=== PATIENT | female | born 1960 | race African-American/Black ===

== ENCOUNTER 2018-12-09 15:40 | Inpatient (IN) ==
[2018-12-09] MEDS ORDERED: MORPHINE IV ONE ×2 (16:03→18:40)
[2018-12-09] MEDS ORDERED: ZOFRAN IV ONE ×2 (16:04→18:40)
--- NOTE | 2018-12-09 16:39 | PROVIDER DOCUMENTATION ---
HPI-Abdominal Pain/GI Problem - General Chief Complaint: Abdominal Pain Stated Complaint: SIDE PAIN Time Seen by Provider: 12/09/18 16:01 Source: patient, family Allergies/Adverse Reactions: Patient Allergies Allergy/AdvReac Type Severity Reaction Status Date / Time No Known Allergies Allergy Verified 09/13/15 15:43 Home Medications: Home Medication List Medication Instructions Recorded Confirmed Last Taken Type Ipratropium/Albuterol INH 1 puff INH RTQ6H #1 inhaler 08/16/15 12/09/18 08/31/15 07:00 Rx [Combivent Respimat Inhaler] - History of Present Illness-ABD Nature of Presenting Problems: left side swollen and painful for the last 3 days and today is worse. worsening with cough. +decreased appetite, sob. small bm yesterday. denied nausea, vomiting, diarrhea, wt loss. has history of eye surgery in november for glaucoma. Review of Systems - Adult - REVIEW OF SYSTEMS - ADULT Constitutional: reports: no symptoms reported Eyes: reports: no symptoms reported Ears, Nose, Mouth & Throat: reports: no symptoms reported Cardiovascular: reports: no symptoms reported Respiratory: reports: no symptoms reported Gastrointestinal: reports: no symptoms reported Genitourinary: reports: no symptoms reported Musculoskeletal: reports: no symptoms reported Integumentary: reports: no symptoms reported Neurological: reports: no symptoms reported Psychiatric: reports: no symptoms reported Endocrine: reports: no symptoms reported Hematologic/Lymphatic: reports: no symptoms reported Allergic/Immunologic: reports: no symptoms reported All Other Systems: Reviewed and Negative Past History - Adult - PAST MEDICAL HISTORY-ADULT Review of Records: reports: Old Records Reviewed, Nursing Assessment Review, Medications Reviewed, Social history reviewed & non-contributory. Major Childhood Illnesses: reports: denies history Cardiovascular: reports: HTN Respiratory: reports: asthma, COPD Gastrointestinal: reports: denies history Obstetrical/Gynecological: reports: denies history Genitourinary: reports: denies history Musculoskeletal: reports: denies history Neurological: reports: denies history Endocrine/Immune: reports: denies history Other Conditions: reports: denies history - PRIOR SURGERIES/PROCEDURES Surgical/Procedure History: reports: none - PRIOR HOSPITALIZATIONS Prior Hospitalizations: reports: for similar symptoms - IMMUNIZATION STATUS Childhood Immunizations: See Nurse Assessment Flu Vaccine: See Nurse Assessment - FAMILY HISTORY Family History: reviewed, not pertinent - SOCIAL HISTORY Smoking: greater than 1 pack/day Provider spent 3-5 mins advising pt. on dangers of tobacco.: Discussed manners to quit use, and f/u contacts for add'l counseling. Substance Use: none/never Alcohol Use Frequency: occasionally (1 beer) Living Situation: family Physical Exam-General - CONSTITUTIONAL General Appearance: appears well, alert (and tearful) - EYES Eyes: PERRL/EOMI, pink conjunctivae - HEAD, EARS, NOSE, MOUTH & THROAT HENMT: normocephalic/atraumatic, moist mucous membranes, normal ENT inspection - RESPIRATORY Respiratory: chest non-tender, lungs clear, normal breath sounds - CARDIOVASCULAR Cardiovascular: normal peripheral pulses, tachycardia - GASTROINTESTINAL (ABDOMEN) Abdominal Exam: tenderness (left side around the 10, 11 ribs, and hard mass felt. umbilcus hernia) - MUSCULOSKELETAL Back Exam: normal inspection, no CVA tenderness, no vertebral tenderness Extremity: normal range of motion, non-tender, normal gait Peripheral Pulses: radial (R): 2+, radial (L): 2+, dorsalis-pedis (R): 2+, dorsalis-pedis (L): 2+ - SKIN Integumentary: normal color, normal turgor, warm/dry - NEUROLOGIC Neurologic: grossly normal, no motor/sensory deficits - PSYCHIATRIC Psych/Mental Status: oriented x 3, tearful Progress - PLAN OF CARE/RESULTS Progress/Plan/Lab Results: Vital Signs - 8 hr 12/09/18 15:46 12/09/18 15:47 Temperature 98.4 F Pulse Rate 105 H Respiratory Rate 21 Blood Pressure 137/101 O2 Sat by Pulse Oximetry 97 Orders Category Date Time Status ED: Urine Bedside ORDERED Care 12/09/18 15:49 Active NPO Diet 12/09/18 15:[address] ABDOMEN W/CONTRAST [CT] Stat Exams 12/09/18 15:51 Ordered CBC WITH DIFF [HEME] Stat Lab 12/09/18 15:49 Uncollected COMPREHENSIVE METABOLIC PANEL [CHEM] Stat Lab 12/09/18 15:49 Uncollected LIPASE [CHEM] Stat Lab 12/09/18 15:49 Uncollected URINALYSIS [URINALYSIS] Stat Lab 12/09/18 15:49 Uncollected Morphine Med 12/09/18 16:03 Discontinued 4 mg IV NOW ONE Ondansetron [Zofran] Med 12/09/18 16:04 Discontinued 4 mg IV NOW ONE Abd Pain/OB <20 weeks Stat Oth 12/09/18 15:48 Ordered [facility] [address] , [address], [place] [id number] Department of Imaging Patient: LAMAR JEAN ADM Date: 12/09/18 MR#: [id number] : 1960 ADM Status: REG ER Age/Sex: 58/F Room/Bed: Loc: ED Ordering Physician: Ashley Rodriguez MD Family Physician: Trung Cotton Jr, MD Reason for Procedure: NEOPLASM ___ Signed CT ABD/PELVIS W/IV CONT ONLY - 12/09/2018 INDICATION: NEOPLASM COMPARISON: 09/13/2015 FINDINGS: There is worsening, severe cardiomegaly. There is a small to moderate pericardial effusion. There are trace bilateral pleural effusions. There is some mild pulmonary fibrosis in the lung bases. There is a small amount of ascites mainly in the pelvis. There is moderate body wall edema. In the central intramuscular body wall at the left lateral abdomen, there is an oval hyperdense mass or collection. This measures 5.1 x 3.6 cm in AP and lateral dimensions. The liver, gallbladder, spleen, pancreas, adrenals, and kidneys are normal. Spleen size is normal. There is severe vascular disease of the abdominal aorta and its pelvic branches. No aneurysm. No bowel obstruction or inflammation. Urinary bladder is collapsed. Uterus and rectum are normal. Bones are intact. IMPRESSION: 1. Indeterminate oval slightly hyperdense mass or collection in the muscles of the lateral left abdominal wall. This may represent an intramuscular hematoma, versus soft tissue neoplasm. Please correlate clinically. This was not present on the prior CT. 2. Numerous other issues. This exam was performed using automated exposure control, adjustment of mA or kV according to patient size, and/or use of iterative reconstruction technique Electronically signed by Trung Collier 12/09/2018 7:32 PM 12/09/181931 Interpreting Physician: Trung Collier MD Dictated Date/Time: 12/09/181926 cc: Ashley Rodriguez MD; Trung Cotton Jr, MD Result Diagrams: 12/09/18 17:00 12/09/18 17:00 - REASSESSMENT Reassessment #1 Time Reassessed: 19:58 (MILD RELIEF, STIL IN ALOT OF PAIN.) Status: other (ADMIT PT FOR PAIN CONTROL) Reassessment Comment: ABD LUQ PAIN, UNCONTROL PAIN. QUESTIONABLE CANCER, U/S IN THE AM, BIOPSY. - CONSULTS/PCP/HOSPITALIST Notification #1 *Consult/PCP/Hospitalist*: dR. Tracey Time Discussed: 21:11 Consult Disposition: Admit Departure - Departure Date of Disposition Decision: 12/09/18 Time of Disposition Decision: 16:37 DIAGNOSIS: Tobacco use disorder, Abdominal mass, left upper quadrant, Inadequate pain control Disposition: ADMITTED INPATIENT 09 Certified Medical Emergency: Emergent Condition: Stable Additional Freetext Instructions: ED Follow Up Instructions: You have been treated by a care provider in the Emergency Department. These inst ructions are being provided to you so you can have an understanding of how to care for yourself upon discharge. Upon discharge from the Emergency Department, you are responsible for making arrangements for follow-up care by a physician of your choice. Take all prescribed medications as directed. Return to the Emergency Department immediately for any new or worsening symptoms. You may call the Physician Referral phone number at [phone] to obtain a list of Physicians who are taking new patients. Referrals and Follow-Ups: Trung Cotton Jr, MD [Primary Care Provider] - - Critical Care Note This patient required my direct & personal management of CC.: No Attestation - Physician/ CHUCK Attestation The physician spent face to face time with patient:: Yes Advanced Practice Provider documentation review:: Supervising physician onsite and consulted in the evaluation and care of this patient. The physician did have a face to face encounter with the patient.
[2018-12-09 17:41] LABS: URINE SOURCE CLEAN CATCH
[2018-12-09 17:47] LABS: BILIRUBIN URINE NEGATIVE (NEGATIVE); BLOOD URINE NEGATIVE (NEGATIVE); COLOR YELLOW; GLUCOSE URINE NEGATIVE (NEGATIVE); KETONE URINE TRACE mg/dL (NEGATIVE); LEUKOCYTES URINE LARGE (NEGATIVE); NITRITE URINE NEGATIVE (NEGATIVE); PH URINE 5.5; PROTEIN URINE TRACE mg/dL (NEGATIVE); SP GRAVITY URINE 1.027; TURBIDITY URINE CLEAR (CLEAR); UROBILINOGEN URINE NORMAL (NORMAL)
[2018-12-09 17:48] LABS: UR EPITHELIAL CELLS <10 /HPF (<10); URINE BACTERIA NEGATIVE /HPF; URINE RBC <10 /HPF (<10); URINE WBC <10 /HPF (<10)
[2018-12-09 18:02] LABS: BASO# 0.21 X1000 (0.0-0.2); EOS# 0.33 X1000 (0.0-0.7); EOS% 4.8 % (0.0-10.0); HEMATOCRIT 42.7 % (37.0-47.0); HEMOGLOBIN 14.1 g/dL (12.0-16.0); IMM GRAN# 0.02 X1000 (0.0-0.04); IMM GRAN% 0.3 % (0.0-0.5); LYMPH# 2.45 X1000 (1.2-3.4); LYMPH% 35.4 % (20.5-51.1); MCH 29.3 PG (27-31); MCV 88.6 FL (81-99); MONO# 0.69 X1000 (0.11-0.59); MPV 11.6 FL (7.4-10.4); NEUT# 3.22 X1000 (1.4-6.5); NEUT% 46.5 % (42.2-75.2); PLT 250 X1000 (130-400); RBC 4.82 XMIL (4.2-5.4); RDW 14.9 % (11.5-14.5); WBC 6.92 X1000 (4.8-10.8)
[2018-12-09 18:16] LABS: ALB/GLOB RATIO 0.7; ALBUMIN 3.6 g/dL (3.5-5.0); CREATININE 1.2 mg/dL (0.5-0.9); POTASSIUM 5.1 mmol/L (3.5-5.1); TOTAL BILIRUBIN 1.08 mg/dL (0.20-1.00); TOTAL PROTEIN 8.5 g/dL (6.3-8.3)
--- NOTE | 2018-12-09 19:34 | Diag Imaging Result Doc PS360 ---
CT ABD/PELVIS W/IV CONT ONLY - 12/09/2018 INDICATION: NEOPLASM COMPARISON: 09/13/2015 FINDINGS: There is worsening, severe cardiomegaly. There is a small to moderate pericardial effusion. There are trace bilateral pleural effusions. There is some mild pulmonary fibrosis in the lung bases. There is a small amount of ascites mainly in the pelvis. There is moderate body wall edema. In the central intramuscular body wall at the left lateral abdomen, there is an oval hyperdense mass or collection. This measures 5.1 x 3.6 cm in AP and lateral dimensions. The liver, gallbladder, spleen, pancreas, adrenals, and kidneys are normal. Spleen size is normal. There is severe vascular disease of the abdominal aorta and its pelvic branches. No aneurysm. No bowel obstruction or inflammation. Urinary bladder is collapsed. Uterus and rectum are normal. Bones are intact. IMPRESSION: 1. Indeterminate oval slightly hyperdense mass or collection in the muscles of the lateral left abdominal wall. This may represent an intramuscular hematoma, versus soft tissue neoplasm. Please correlate clinically. This was not present on the prior CT. 2. Numerous other issues. This exam was performed using automated exposure control, adjustment of mA or kV according to patient size, and/or use of iterative reconstruction technique Electronically signed by Trung Collier 12/09/2018 7:32 PM
[2018-12-09] MEDS ORDERED: TORADOL IV ONE (19:48)
--- NOTE | 2018-12-09 22:31 | HISTORY AND PHYSICAL ---
PRIMARY CARE PHYSICIAN: Dr. Cotton. CHIEF COMPLAINT: Abdominal pain for 3 days. HISTORY OF PRESENTING ILLNESS: 58-year-old female with a history of COPD had presented to emergency department with 3 days history of worsening abdominal pain on her left lateral side. She states that it was worsening and was getting more painful. She was evaluated in the emergency department and she had a CT scan that was done which did show possibility intermuscular hematoma versus soft tissue neoplasm. Due to these findings it was thought that we will place her for observation further evaluation management. Time my examination, patient had denied any headache, fever, chills, chest pain, shortness of breath, hemoptysis or any weight changes but complained of abdominal pain. PAST MEDICAL HISTORY: Includes COPD. PAST SURGICAL HISTORY: Left eye surgery. ALLERGIES: No known drug allergies. CURRENT MEDICATIONS: Include Combivent 1 puff inhalation q.6 hours. SOCIAL HISTORY: Fifteen pack year history of smoking. Admits to social alcohol use. Denies any illicit drug use. FAMILY HISTORY: No history of coronary disease. REVIEW OF SYSTEMS: Fourteen point review of systems is as in HPI. Other systems negative. PHYSICAL EXAMINATION: GENERAL: Cooperative, friendly female. She is resting more comfortably now. VITAL SIGNS: Temperature 98.4 degrees, pulse 105, respirations 21, blood pressure 137/101. HEENT: Atraumatic, normocephalic. Extraocular movements intact. PERRLA. NECK: Supple. CHEST: Clear to auscultation. CARDIOVASCULAR: Regular rate and rhythm. S1, S2. ABDOMEN: Soft. Diffuse tenderness. EXTREMITIES: No edema. NEURO: She is awake, alert, oriented x3. : No bladder distention. SKIN: Warm. LABORATORIES AND STUDIES: WBC 6.92, hemoglobin 14.1, hematocrit 42.7, platelets 250,000, sodium 134, potassium 5.1, chloride 101, CO2 16, BUN is 14, creatinine 1.2, glucose 96. UA shows large leukocytes. CT of the abdomen pelvis shows oval hyperdense mass or collection muscles of the left lateral abdominal wall which may represent intramuscular hematoma versus soft tissue neoplasm. ASSESSMENT: A 58-year-old female with a history of chronic obstructive pulmonary disease had presented to emergency department with 3 days history of worsening abdominal pain in the left lateral side. She was evaluated the emergency department. She had imaging done which did show possibility of intermuscular hematoma versus soft tissue neoplasm. Due to these findings it was thought that will place her for observation for further evaluation management. 1. Abdominal pain. 2. Abnormal CT showing intermuscular hematoma versus soft tissue neoplasm. 3. Chronic obstructive pulmonary disease. 4. Ongoing tobacco abuse. PLAN: 1. We will admit patient to medical floor with telemetry. 2. Will give patient adequate pain control. 3. We will check an abdominal ultrasound. 4. Continue with DuoNeb p.r.n. 5. Put patient DVT prophylaxis SCD. 6. I counseled patient on smoking cessation. cc: Antonio Rothman MD
[2018-12-10] MEDS: MORPHINE IV PRN ×6 (00:11→23:54)
[2018-12-10] MEDS ORDERED: DUONEB (A & A) INH PRN (00:17)
[2018-12-10] MEDS: NS 1,000 ML IV SCH ×3 (01:11→12:24)
[2018-12-10 05:30] LABS: BASO# 0.24 X1000 (0.0-0.2); BASO% 3.6 % (0.0-0.8); EOS# 0.07 X1000 (0.0-0.7); HEMATOCRIT 46.1 % (37.0-47.0); LYMPH# 2.14 X1000 (1.2-3.4); LYMPH% 32.1 % (20.5-51.1); MCH 29.7 PG (27-31); MCHC 32.5 g/dL (33-37); MCV 91.3 FL (81-99); MONO# 0.74 X1000 (0.11-0.59); MONO% 11.1 % (1.7-9.3); MPV 11.7 FL (7.4-10.4); NEUT# 3.48 X1000 (1.4-6.5); NEUT% 52.2 % (42.2-75.2); PLT 211 X1000 (130-400); RBC 5.05 XMIL (4.2-5.4); RDW 15.8 % (11.5-14.5); WBC 6.67 X1000 (4.8-10.8)
[2018-12-10] MEDS: ZOFRAN IV ONE ×2 (07:37→08:38)
--- NOTE | 2018-12-10 08:36 | Diag Imaging Result Doc PS360 ---
EXAM: US ABDOMEN-COMPLETE HISTORY: abdominal pain TECHNIQUE: Abdominal ultrasound COMPARISON: 09/14/2015 FINDINGS: Normal pancreas. Prominent atherosclerosis, but no aortic aneurysm. Normal inferior vena cava. There is fatty infiltration of the liver. Normal gallbladder. No stones. The common bile that measures 3 mm. Normal right kidney. No hydronephrosis. There is a small amount of ascites. Normal left kidney. No hydronephrosis. Normal spleen. IMPRESSION: 1.Small amount of ascites 2.Likely mild fatty infiltration of the liver 3.Prominent atherosclerosis Electronically signed by Nikhil King 12/10/2018 8:34 AM
--- NOTE | 2018-12-11 00:06 | GENERAL SURGERY CONSULTATION ---
DATE: 12/10/2018 REASON FOR CONSULTATION: Abdominal wall mass. HISTORY OF PRESENT ILLNESS: This is a 58-year-old female who began having left upper and lateral abdominal pain several days ago. It has been persistent and worsening in nature. It coincided with an episode of severe coughing over the weekend. No nausea or vomiting. No fever or chills. No weight loss. No diarrhea or constipation. It is worsened to direct pressure, lessened with rest. PAST MEDICAL HISTORY: COPD. PAST SURGICAL HISTORY: Left eye surgery. ALLERGIES: No known drug allergies. HOME MEDICATIONS: Combivent inhaler. ALLERGIES: No known drug allergies. SOCIAL HISTORY: She has a [id number] history of smoking. She does drink alcohol occasionally. No illicit drug use. FAMILY HISTORY: Reviewed and noncontributory. REVIEW OF SYSTEMS: Ten systems reviewed and negative except as noted above. PHYSICAL EXAMINATION: Vital Signs: Temperature 98.3 degrees, pulse is 116, respiratory rate 16, blood pressure 100/67, O2 saturation 98%. General: A somewhat sickly appearing female in no acute distress, who looks a little older than her stated age. HEENT: Normocephalic, atraumatic. Extraocular muscles intact. Pupils equal, round, reactive to light. Sclerae anicteric. Moist mucous membranes. Hearing grossly normal. No oral lesions. Neck: Supple. No thyromegaly. Cardiovascular: Regular rate and rhythm. Respiratory: Bilateral breath sounds. No work of breathing. Gastrointestinal: Soft, nondistended. No organomegaly. There is a tender, firm area in the left upper lateral abdominal wall measuring 3 to 5 cm in greatest dimension. It is somewhat boggy, however, in nature. There is no significant overlying erythema. Extremities: No clubbing, cyanosis, or edema. Skin: Warm and dry. No rash. Musculoskeletal: Moves all extremities equally and well. LABORATORY: Sodium 134, BUN 14, creatinine 1.2. Total bilirubin 1.1, AST 34, alkaline phosphatase 231, lipase 21. CBC reviewed and unremarkable. Urinalysis reviewed and unremarkable. IMAGING: CT of the abdomen and pelvis was done yesterday, showing an indeterminate hyperdense mass or fluid collection in the muscles of the lateral left abdominal wall. This could be an intramuscular hematoma or a soft tissue neoplasm. An abdominal ultrasound was performed which showed small amount of ascites and mild fatty infiltration of the liver and prominent atherosclerosis, but no abdominal wall mass was described. ASSESSMENT AND PLAN: A 58-year-old female with a left-sided abdominal wall mass of unclear etiology. I would favor intramuscular hematoma versus neoplasm. We will evaluate tomorrow again with ultrasound and do a needle biopsy, either aspiration or core needle biopsy, as the ultrasound results dictate. cc: Bartolo Chen MD
[2018-12-11] MEDS: MORPHINE IV PRN (08:35)
[2018-12-11] MEDS ORDERED: LR 1,000 ML IV ONE (08:40)
[2018-12-11] MEDS ORDERED: LR 1,000 ML IV SCH ×2 (09:00→09:02)
[2018-12-11 09:09] LABS: BASO# 0.11 X1000 (0.0-0.2); BASO% 1.3 % (0.0-0.8); EOS# 0.01 X1000 (0.0-0.7); EOS% 0.1 % (0.0-10.0); HEMATOCRIT 44.8 % (37.0-47.0); HEMOGLOBIN 14.1 g/dL (12.0-16.0); IMM GRAN# 0.04 X1000 (0.0-0.04); IMM GRAN% 0.5 % (0.0-0.5); LYMPH# 1.38 X1000 (1.2-3.4); LYMPH% 15.9 % (20.5-51.1); MCH 29.5 PG (27-31); MCHC 31.5 g/dL (33-37); MCV 93.7 FL (81-99); MONO# 0.97 X1000 (0.11-0.59); MONO% 11.2 % (1.7-9.3); MPV 11.3 FL (7.4-10.4); NEUT# 6.16 X1000 (1.4-6.5); PLT 184 X1000 (130-400); RBC 4.78 XMIL (4.2-5.4); WBC 8.67 X1000 (4.8-10.8)
--- NOTE | 2018-12-11 09:28 | EKG Report ---
Test Performed on : 12/11/2018 09:17:35 AM Test Reason : Evaluate for cardiac ischmia. AMS and Hypotension Blood Pressure : / mmHG Vent. Rate : 110 BPM Atrial Rate : 110 BPM P-R Int : 162 ms QRS Dur : 102 ms QT Int : 356 ms P-R-T Axes : 065 118 -13 degrees QTc Int : 481 ms Sinus tachycardia. Right ventricular hypertrophy Anteroseptal infarct , age undetermined T wave abnormality, consider inferior ischemia Abnormal ECG When compared with ECG of 13-SEP-2015 18:48, Significant changes have occurred Confirmed by Adan RIVER, Ed Arce ([id number]) on 12/11/2018 6:39:26 PM
[2018-12-11 09:45] LABS: ALB/GLOB RATIO 0.7; ALBUMIN 3.4 g/dL (3.5-5.0); CALCIUM 8.4 mg/dL (8.8-10.2); CREATININE 3.1 mg/dL (0.5-0.9); POTASSIUM 5.8 mmol/L (3.5-5.1); TOTAL BILIRUBIN 0.82 mg/dL (0.20-1.00)
[2018-12-11 09:54] LABS: ALLEN TEST YES; BE -14.4 mmoll (-3.0-3.0); BLOOD TYPE ARTERIAL; HCO3-(ACT) 13.5 mmoll (20.0-26.0); METHB 0.9 % (0.0-1.5); O2(CT) 15.8 mL/dL (15.0-23.0); PCO2(98.6) 38 mmHg (35-45); PO2(98.6) 63 mmHg (60-100); SAMPLE BLOOD; SAO2 90.5 % (95.0-100.0); THB 12.8 g/dL (11.5-17.4)
[2018-12-11 09:58] LABS: MODALITY NRB; O2HB 87.7 % (95.0-99.0); pH(98.6) 7.16 (7.35-7.45)
[2018-12-11 09:58] LABS: BANDS 6 % (0-1); BASO 1 % (0-1); LYMPHS 17 % (21-51); MONO 13 % (1-9); SEGS 62 % (42-75)
[2018-12-11 09:59] LABS: ANISOCYTOSIS 1+; LARGE PLATELETS 2+
[2018-12-11] MEDS ORDERED: ALBUTEROL 0.5% INH CONC FOR HYPERKALEMIA INH ONE (09:59)
[2018-12-11] MEDS ORDERED: HALDOL IV PRN (10:10)
[2018-12-11] MEDS ORDERED: SODIUM BICARBONATE 8.4% 150 MEQ in D5W 1,000 ML IV SCH ×2 (11:00→21:04)
--- NOTE | 2018-12-11 11:08 | Diag Imaging Result Doc PS360 ---
CHEST-PORTABLE - 12/11/2018 INDICATION: dyspnea COMPARISON: 09/13/2015 FINDINGS: There is significant cardiomegaly which has worsened since prior. Pulmonary vascularity is congested. There are some nonspecific infiltrate or atelectasis in the lower lobes bilaterally. No large pleural effusion. IMPRESSION: Cardiomegaly and pulmonary vascular congestion. Bilateral lower lobe nonspecific atelectasis or infiltrate. Electronically signed by Trung Collier 12/11/2018 11:05 AM
--- NOTE | 2018-12-11 11:11 | PROGRESS NOTE ---
DATE: 12/11/2018 INTERVAL HISTORY: I was informed by the nursing team that the patient was a little confused, and they had had a hard time in getting proper oxygen saturation on her. I immediately evaluated the patient. She does appear in mild distress and is fidgety. She is denying any chest pain or shortness of breath, though she is complaining of abdominal pain. Her pulse is weak, and so I have ordered intravenous fluid resuscitation. I have also ordered CBC, CMP, and ABG on her. I re-evaluated the patient again when she was about to go for ultrasound-guided biopsy of her mass on the left flank region. However, at the moment, she is still very encephalopathic so I discussed with the surgical team at bedside about holding off on the procedure. SUBJECTIVE: She denies any chest pain or shortness of breath. She is only complaining of abdominal pain. VITALS: Temperature of 97.9 degrees, pulse 109, respiratory rate 16, blood pressure 92/63. She is saturating 96% on 100% non-rebreather. PHYSICAL EXAMINATION: General: Appears in mild distress. Heart: Tachycardic. S1, S2 normal. No murmur, rub, or gallop. Lungs: Air entry bilaterally equal. No wheeze, rhonchi, or crackles. Abdomen: Firm. She does appear to have protein energy malnutrition, and she has low BMI. It is generalized tender especially in periumbilical left lower quadrant region. Hypoactive bowel sounds. She has significant jugular venous distention. No lower extremity edema. Neurologic: She is alert, however, she appears confused. She is able to tell me her name. She is not entirely oriented with situation. She is only complaining of abdominal pain. I called the patient's son to get more history, and have left a voice message. LABORATORY: The labs have come back. Her hemoglobin and hematocrit is stable. Her platelets are also stable. She does have significant metabolic acidosis. She has profound elevated anion gap metabolic acidosis, hyponatremia, hyperkalemia, acute kidney injury, and hypoglycemia. She also had elevated lipase level. On reviewing ABG and BMP, it does appear that her compensated pCO2 should be between 24 to 28, but she also has hypercarbia. MICROBIOLOGY: No data. IMAGING: Chest x-ray has not been performed. ASSESSMENT AND PLAN: 1. Acute hypoxic respiratory failure, likely in the setting of baseline COPD and multiple other metabolic derangements on chronic obstructive pulmonary disease baseline. I will start the patient on BiPAP if she tolerates. Otherwise, we will continue her on a nonrebreather mask to maintain saturation more than 92%. Follow up CXR. I will follow up with ABG tomorrow. 2. Profound acidosis in the setting of mixed metabolic and respiratory acidosis. Considering her hypoglycemia and low bicarbonate and elevated anion gap, I will start her on intravenous dextrose with bicarbonate. We will follow up with repeat BMP in the afternoon time. I will also get ultrasound retroperitoneal to rule out any post obstructive acute renal failure. 3. Acute kidney injury with hyperkalemia and hyponatremia. The patient did get CT scan of the abdomen and pelvis with IV contrast 48 hours prior, and it is possible that it might have caused contrast induced nephropathy. I will start patient on intravenous fluids and follow up with BMP. I will give her bicarb, lactulose and albuterol, US kidneys and I will also consider consult Nephrology. 4. Left lateral abdominal wall mass or collection. Surgical Team on board. Ultrasound-guided biopsy is planned. However, considering her acute illness, it has been postponed. 5. Acute encephalopathy likely in the setting of multiple metabolic derangement. She is moving all of her extremities spontaneously. My suspicion for stroke is very less. I will also introduce Echols catheter. 6. Cardiomegaly with elevated JVD: Follow up ECHO to rule out pericardial effusion, right heart failure. 6. Disposition. I will transfer patient to [facility] for closer monitoring. I called the patient's son who is a surrogate decision maker to discuss with him about her clinical condition. However, he did not sweet pickle maker, and I left a voice message. Plan of care discussed with the nursing team. cc: Brandyn Campos MD [facility]
[2018-12-11] MEDS ORDERED: EPINEPHRINE SYRINGE IV ONE (12:00)
[2018-12-11] MEDS ORDERED: SODIUM BICARBONATE 8.4% IV ONE (12:00)
[2018-12-11] MEDS ORDERED: CALCIUM CHLORIDE SYRINGE IV ONE (12:00)
[2018-12-11] MEDS ORDERED: QUELICIN ONE (12:22)
[2018-12-11] MEDS ORDERED: AMIDATE ONE (12:22)
[2018-12-11] MEDS ORDERED: NORCURON ONE (12:25)
[2018-12-11] MEDS: LEVOPHED 8 MG in D5 1/2 NS 250 ML IV SCH (12:35)
[2018-12-11] MEDS ORDERED: LEVOPHED 8 MG in D5 1/2 NS 250 ML IV SCH (13:00)
[2018-12-11 13:09] LABS: ALLEN TEST YES; BE -16.3 mmoll (-3.0-3.0); BLOOD TYPE ARTERIAL; HCO3-(ACT) 12.2 mmoll (20.0-26.0); METHB 1.2 % (0.0-1.5); O2(CT) 16.1 mL/dL (15.0-23.0); O2HB 96.5 % (95.0-99.0); PCO2(98.6) 48 mmHg (35-45); PO2(98.6) 131 mmHg (60-100); SAMPLE BLOOD; SAO2 99.5 % (95.0-100.0); SRATE 16 BPM; THB 11.7 g/dL (11.5-17.4); TVOL 500 mL
[2018-12-11 13:14] LABS: MODALITY VENTILATOR; pH(98.6) 7.06 (7.35-7.45)
[2018-12-11] MEDS: ZYVOX 600 MG/D5W 600 MG/300 ML IVPB IV SCH (13:14)
[2018-12-11] MEDS ORDERED: ZOSYN 3.375 GM in NS 50 ML IV SCH (13:15)
[2018-12-11] MEDS ORDERED: AMIDATE IV ONE (13:19)
[2018-12-11] MEDS ORDERED: NORCURON IV ONE (13:21)
--- NOTE | 2018-12-11 13:44 | PROGRESS NOTE ---
DATE: 12/11/2018 ADDENDUM: I was at the bedside evaluating the patient as she was very agitated. She was not tolerating BiPAP well, and she was given haloperidol. However, despite that, she was not tolerating the BiPAP well, and she was even taking the non-rebreather mask out. I directed the nurse to get the restraints so that we can keep the non-rebreather mask on. During that moment when she was getting her restraints, she had started becoming less responsive. She did have cold extremities. I was not able to feel her pulse. I checked the carotid as well as femoral pulse, and she passed out. She was not responding so chest compression was initiated, and a code blue was called. The entire code blue lasted for about 5 minutes. She was given an ampule of calcium gluconate, and ampules of epinephrine following which we were able to get the pulse back. The bicarb drip was ordered in the morning time, however, she was yes to start receiving the bicarb drip. During code, we had started giving her intravenous fluid boluses. After we got the return of spontaneous circulation, we kept the patient on intravenous fluids and started her on bicarbonate drip. We gave her another ampule of epinephrine and started on norepinephrine drip. We also gave her an ampule of bicarbonate. Repeat blood pressure was 120/70. She was intubated by emergency room physician during the code, and she was getting bag- mask ventilation. We were able to transfer the patient to ICU. Right outside the patient's room, patient's daughter and son were present. I went and informed them about the patient's clinical condition. I informed them that I started taking care of her today and she was confused in the morning time when I evaluated her, and was not oriented with situation so I had ordered stat labs, which had suggested hyperkalemia and acute kidney injury with hyponatremia. I was suspecting metabolic derangement contributing to her acute encephalopathy. She was also very hypoxic, and we had started her on nonrebreather mask. I explained to them that her condition is critical. We will have to transfer to ICU for mechanical ventilation. I allowed them sufficient time to ask all the questions that they had, and I answered all of them satisfactorily. Meanwhile, I discussed the case with conservation planner at bedside as well. I am going to start her on intravenous fluids. Would introduce nasogastric tube. We will get chest x-ray and abdominal x-ray to rule out small-bowel obstruction as well as to confirm the position of the nasogastric or orogastric tube as well as endotracheal tube. I will also start her on broad-spectrum antibiotics, send blood cultures, and will follow up with serial troponin, echocardiogram and lactate. Plan of care discussed with nursing team at bedside. TIME SPENT: More than 30 minutes of critical care time was spent in taking care of this patient. cc: Brandyn Campos MD ADDENDUM: I again evaluated the patient in the afternoon time. Her acidosis is worse and I have continued her on bicarbonate drip. I have discussed her case with the conservation planner. I will follow up with DIMITRI silver. I again updated 3 of her family members about her care and answered all of their questions. JESSY
--- NOTE | 2018-12-11 14:37 | GENERAL SURGERY PROGRESS NOTE ---
DATE: 12/11/2018 SUBJECTIVE: The patient is short of breath this morning and complains of pain in her left abdomen when she coughs. OBJECTIVE: Vital Signs: Temperature 97.9 degrees, pulse 109, blood pressure 92/63, and O2 saturation 77%. General: She is awake, appears to be in some mild distress. She is oriented x3. CV: Tachycardic and regular. Respiratory: Bilateral breath sounds with tachypnea. Gastrointestinal: Soft, nondistended. She is mildly tender in the left lateral abdomen and left upper quadrant where there is a firm abdominal wall mass. No overlying erythema or warmth. LABORATORY: White blood cell count 8.7, hemoglobin 14, hematocrit 44, platelet count 184. Sodium 130, potassium 5.8, chloride 99, CO2 12. BUN 33, creatinine 3.1, AST 52, ALT 11, alkaline phosphatase 195, lipase 455. A pH 7.16, pCO2 38, PaO2 63, bicarbonate 13, base deficit -14, lactate 2.3 on 100% non-rebreather. ASSESSMENT AND PLAN: A 58-year-old female, who was admitted with abdominal pain and imaging showing a left abdominal wall mass of unclear etiology. She now has respiratory failure, hypotension, acute kidney injury and metabolic acidosis of unclear etiology. The hospitalist has ordered a Echols catheter and transferred to the intensive care unit, as well as a chest x-ray, renal ultrasound and echocardiogram which I agree with. She also received a bolus of fluids this morning. She may have some early pancreatitis. In regards to the abdominal wall biopsy, we will defer that to a later time when she is more stable. cc: Bartolo Chen MD
--- NOTE | 2018-12-11 14:43 | Diag Imaging Result Doc PS360 ---
EXAM: CHEST/ABD TUBE PLACEMENT 12/11/2018 HISTORY: ET tube placement, Ng tube placement TECHNIQUE: Chest and abdomen for NG tube placement COMMENT: There is an NG tube with its tip in the stomach. There continues to be cardiomegaly and patchy bilateral pulmonary opacities. IMPRESSION: NG tube in the stomach. Electronically signed by Saji Triplett 12/11/2018 2:41 PM
--- NOTE | 2018-12-11 14:44 | Diag Imaging Result Doc PS360 ---
EXAM: CHEST-PORTABLE 12/11/2018 HISTORY: dyspnea. Confirm endotracheal tube placement TECHNIQUE: AP portable at 1428 COMMENT: There is an endotracheal tube with its tip approximately 3 cm above the norma. There is an NG tube with its tip below the diaphragm. There are patchy alveolar opacities bilaterally which have worsened since 12/11/2018 at 1054. IMPRESSION: Worsening pulmonary edema. Electronically signed by Saji Triplett 12/11/2018 2:42 PM
[2018-12-11] MEDS: DUONEB (A & A) INH SCH ×4 (15:29→23:25)
[2018-12-11] MEDS: LACTULOSE PO SCH ×2 (16:01→20:15)
[2018-12-11 16:06] LABS: URINE SOURCE CATH
[2018-12-11 16:11] LABS: BILIRUBIN URINE SMALL (NEGATIVE); BLOOD URINE MODERATE (NEGATIVE); COLOR YELLOW; GLUCOSE URINE NEGATIVE (NEGATIVE); KETONE URINE TRACE mg/dL (NEGATIVE); LEUKOCYTES URINE NEGATIVE (NEGATIVE); NITRITE URINE NEGATIVE (NEGATIVE); PH URINE 5.5; PROTEIN URINE 100 mg/dL (NEGATIVE); SP GRAVITY URINE 1.033; TURBIDITY URINE HAZY (CLEAR); UR EPITHELIAL CELLS >10 /HPF (<10); URINE BACTERIA NEGATIVE /HPF; URINE RBC <10 /HPF (<10); UROBILINOGEN URINE NORMAL (NORMAL)
[2018-12-11 16:22] LABS: CALCIUM 8.8 mg/dL (8.8-10.2); CREATININE 3.4 mg/dL (0.5-0.9); POTASSIUM 5.4 mmol/L (3.5-5.1)
[2018-12-11 16:22] LABS: UR CREAT RANDOM 85.3 mg/dL (11-20); UR PROT RANDOM 168.1 mg/dL
[2018-12-11] MEDS: ATIVAN IV PRN (18:00)
--- NOTE | 2018-12-11 19:30 | ECHO REPORT ---
ORDER DATE: 12/11/2018 INDICATION: Patient with cardiomegaly, CHF suspected. M-MODE MEASUREMENTS: Left ventricle end diastole: 1.1. Left ventricle end systole: 2.2. Posterior wall: 1.1. Interventricular septum: 1.1. Left atrium: 1.9. Aortic root: 3.0. SUMMARY OF 2-DIMENSIONAL IMAGIN. Left ventricular function appears to be normal. 2. There is flattening of the interventricular septum due to significant enlargement of the right ventricle. The right ventricle is markedly enlarged and shows global hypokinesis. 3. The right atrium is massively dilated. 4. The left atrium appears to be normal. 5. The aortic valve looks grossly normal. 6. The mitral valve also appears to be grossly normal. 7. This study is very difficult. There is moderate to severe tricuspid regurgitation. Pulmonary pressure is probably significantly elevated. This study is probably underestimating the pulmonary pressure. In this case, it is on the order of 68 mmHg. 8. There is a mild degree of pulmonic regurgitation. 9. There is a moderate-sized pericardial effusion without evidence of tamponade. SUMMARY: This study shows: 1. Markedly enlarged right ventricle and massively dilated right atrium, probably with severe pulmonary hypertension. Global function of the right ventricle is moderately impaired. Suspected significant pulmonary hypertension. 2. The left ventricle and left atrium appear to be small, and left ventricular systolic function is normal with flattening of the interventricular septum. 3. The aortic and mitral valves appear to be unremarkable. 4. Diastolic function could not be evaluated and is probably irrelevant in this case. 5. There is a moderate-sized pericardial effusion. 6. The study may be consistent with chronic fluid overload versus severe pulmonary vascular disease. Clinical correlation is strongly recommended. cc: MD Brandyn Shaver MD
[2018-12-11] MEDS: HEPARIN SUBQ SCH (20:15)
--- NOTE | 2018-12-11 21:13 | NEPHROLOGY CONSULTATION ---
DATE: 12/11/2018 REASON FOR ADMISSION: Abdominal pain for 3 days. REASON FOR CONSULT: Acute kidney injury with oliguria. CONSULTING PHYSICIAN: Dr. Campos. HISTORY OF PRESENT ILLNESS: Ms. Leung is a 58-year-old female who has a known history of COPD. The patient is currently intubated. She had her son and her daughter at the bedside. The son indicated that he had called her 2 days ago, indicating that she had been coughing severely, had severe abdominal pain to her lateral side on the left. She had stated that the pain was getting worse and she was going to go to the emergency room for evaluation. Upon arrival, she was sent for a CT scan which showed a possible intramuscular hematoma versus a tissue neoplasm. Dr. Chen had been consulted, had planned for an ultrasound-guided biopsy of abdominal wall mass secondary to patient's increased work of breathing, hypotension, and lethargy. The patient was transferred to ICU and this was deferred at this time. The patient has been intubated. Dr. Chavis has been consulted. Unable to obtain any further review of systems per patient. Son and daughter are unaware of any other medical history. PAST SURGICAL HISTORY: They state she has had left eye surgery. SOCIAL HISTORY: She is a 15 pack per year history of smoking. No alcohol or illicit drug use. They state she lives alone. FAMILY HISTORY: No history of coronary artery disease or kidney disease. No history of hypertension. ALLERGIES: Listed as no known drug allergies. HOME MEDICATIONS: Combivent inhaler. PRIMARY CARE PHYSICIAN: Dr. Cotton. It is noted that the patient's baseline creatinine is 0.8 to 1 prior to her admission. BUN of 33 with a creatinine of 3.1, and she is hyperkalemic with a potassium of 5.8, hyponatremic, sodium of 130. The patient had a Echols catheter inserted once arrived in the ICU. She has only had 35 mL documented out. REVIEW OF SYSTEMS: Unable to obtain. Most information obtained per family and per chart. MOST RECENT VITAL SIGNS: Temperature 97.9, blood pressure 92/63, heart rate 109, respirations 16. She is on 100% FiO2. Dr. Chavis has seen her ABGs. She is on 500 tidal volume with 12 of PEEP. Feels that there is nothing more to do this evening. ABGs are ordered for the morning. LABORATORY DATA: Sodium 130, potassium 5.8, chloride 99, CO2 12, BUN 33, creatinine 3.1, glucose 62, anion gap of 19, calcium 8.4, albumin 3.4. White count 8.67, hemoglobin 14.1, hematocrit 44.8, with a platelet count of 184,000. ABGs: PH 7.06, pCO2 48, pO2 131, bicarb 12.2. Her plasma lactate is 5.7 on 100% FiO2. Chest x-ray this a.m. shows bilateral lower lobe infiltrates versus atelectasis. CT of the abdomen and pelvis, performed on 12/09/2018, shows negative hydronephrosis or renal mass. The patient is currently on a Levophed drip. This is being titrated. She is on a sodium bicarbonate drip, D5W, with 3 amps of sodium bicarbonate infusing at 75 mL an hour. She is currently on antibiotics of Zyvox and Zosyn. These have been changed to renal dosing. PHYSICAL EXAMINATION: General: This is a 58-year-old female. She is not sedated. She is ventilator dependent in ICU. She does not open her eyes to verbal or tactile stimuli, even with the family talking to her. HEENT: Normocephalic, atraumatic. Conjunctiva is pale. PERRL. Mucous membranes are dry. Oral ET tube is in place. Neck: Supple. Trachea midline. No evidence of JVD. Cardiovascular: She is tachycardic. Regular rate and rhythm. No murmur or gallop appreciated. Lungs: She has coarse breath sounds bilateral. No wheezes or crackles present. Ventilatory support. Abdomen: Soft. No response to light palpation. Noted diffuse tenderness earlier in the a.m. Genitourinary: Echols catheter is in place. There is no urine output. Integumentary: Skin is warm and dry. She does have some light scratches noted to her lower extremities and upper extremities. No drainage. No rashes or lesions except for mentioned. Neurological: Unresponsive. Ventilatory support as mentioned above. ASSESSMENT AND PLAN: 1. Acute kidney injury. Multifactorial ATN. She has an elevated BUN and creatinine. We are awaiting urine electrolytes if they can collect enough urine to send down. Etiology is unclear. Her blood pressure has responded nicely to Levophed. No acute indications for hemodialysis at this time. 2. Metabolic acidosis with respiratory acidosis, elevated anion gap of 19. The patient is currently on a sodium bicarbonate drip. 3. Electrolytes. Patient is hyperkalemic, potassium of 5.8. Likely related to reabsorbing hematoma. We will check an acetone level and treat her potassium with insulin and D50 and albuterol inhaler. 4. Anemia. This is actually in target. 5. Abdominal wall mass versus abdominal hematoma. This is being followed by the primary care and Dr. Chen. 6. Respiratory failure. The patient is known chronic obstructive pulmonary disease, now followed by Dr. Chavis. Patient is now intubated. I would like to thank you for allowing us to follow with this patient. Dictated by CHINO Rico for Adalberto Garibay MD Face to face encounter, data reviewed, discussed with Kanika Yoo on 12/11/18. I agree with the above assessment and plan of care. cc: CHINO Rico MD [facility]
[2018-12-11] MEDS: ZOSYN 2.25 GM in NS 50 ML IV SCH (21:23)
--- NOTE | 2018-12-11 22:35 | OPERATIVE NOTE ---
PROCEDURE DATE: 12/11/2018 PREOPERATIVE DIAGNOSES: 1. Poor peripheral venous access. 2. Multiorgan failure. 3. Acute kidney injury. POSTOPERATIVE DIAGNOSES: 1. Poor peripheral venous access. 2. Multiorgan failure. 3. Acute kidney injury. PROCEDURE: Insertion of central venous Trialysis catheter. SURGEON: Bartolo Chen MD. ESTIMATED BLOOD LOSS: Scant. COMPLICATIONS: None apparent. TECHNIQUE: The patient was kept supine in her ICU bed. The right groin was prepped and draped in usual sterile fashion. The femoral artery was palpated and medial to the artery the femoral vein was accessed with a needle and syringe. Dark nonpulsatile blood was obtained. The wire passed through the needle easily. The needle was removed. The track was dilated. A Trialysis catheter was passed over the wire via the Seldinger technique. The wire was removed. Each port selene back blood easily was flushed with saline. Sterile caps were applied. The port was anchored to the skin with nylon suture. A sterile dressing was applied. There were no apparent complications. cc: Bartolo Chen MD
[2018-12-11 22:44] LABS: ALLEN TEST YES; BLOOD TYPE ARTERIAL; HCO3-(ACT) 20.2 mmoll (20.0-26.0); METHB 0.8 % (0.0-1.5); MODALITY VENTILATOR; O2(CT) 16.8 mL/dL (15.0-23.0); PCO2(98.6) 47 mmHg (35-45); PO2(98.6) 88 mmHg (60-100); SAMPLE BLOOD; SAO2 99.6 % (95.0-100.0); SRATE 16 BPM; THB 12.4 g/dL (11.5-17.4); TVOL 500 mL; pH(98.6) 7.26 (7.35-7.45)
[2018-12-11 23:14] LABS: CALCIUM 7.8 mg/dL (8.8-10.2); CREATININE 3.3 mg/dL (0.5-0.9); POTASSIUM 4.9 mmol/L (3.5-5.1)
[2018-12-12] MEDS: ZYVOX 600 MG/D5W 600 MG/300 ML IVPB IV SCH ×2 (01:23→13:27)
[2018-12-12] MEDS: LEVOPHED 8 MG in D5 1/2 NS 250 ML IV SCH ×3 (02:48→21:12)
[2018-12-12] MEDS: DUONEB (A & A) INH SCH ×6 (03:20→23:16)
--- NOTE | 2018-12-12 05:21 | CONSULTATION ---
DATE OF CONSULTATION: 12/11/2018 REQUESTING PROVIDER: Dr. Brandyn Campos. REASON FOR CONSULTATION: Ventilator management. HISTORY OF PRESENT ILLNESS: This is a 58-year-old female with a medical history of COPD with ongoing tobacco abuse and hypertension. She presented to the ER on 12/09/2018 with worsening abdominal pain and abdominal distention for [address] abdomen and pelvis with contrast in the ER revealed indeterminate oval, slightly hypodense mass or collection in the muscles of the lateral left abdominal wall. This may represent an intramuscular hematoma versus soft tissue neoplasm. There was worsening severe cardiomegaly or small to moderate pericardial effusion, chest bilateral pleural effusions, some mild pulmonary fibrosis in the lung bases. A small amount of ascites, mainly in the pelvis, and moderate body wall edema. Dr. Chen was consulted on 12/10/2018 and was planning on ultrasound and a needle biopsy this morning. Unfortunately, this morning patient's respiratory status declined significantly. She was originally on nasal cannula at 2 L. Her oxygen saturation dropped to 70s to 80s. She was put on a non- rebreather and oxygen saturation stayed in the lower 90s. ABG showed severe acidemia with pH 7.16 and HCO3 of 13.5. BiPAP was attempted later but patient could not tolerate it. She became very restless and agitated. She was put back on a non-rebreather, but she kept trying to pull the mask off, so the restraint was order. As the nurse put the restraints on her, she passed out. Code blue initiated and lasted for about 5 minutes. She was given an ampule of calcium gluconate and ampules of epinephrine before regaining pulses. She was intubated during the code and paralyzed with 10 mg vecuronium. She was transferred to the ICU at 1245. I saw the patient at around 1330, she was still unresponsive. She was on Levophed drip and bicarb drip. There was no family at the bedside. All information obtained from Dr. Campos and E-chart. PAST MEDICAL/SURGICAL HISTORY: 1. COPD. 2. Ongoing tobacco abuse. 3. Hypertension. 4. Left eye surgery. SOCIAL HISTORY: The patient smokes a pack per day for over 40 years. She has social alcohol use. She has no illicit drug use. FAMILY HISTORY: Unknown. ALLERGIES: No known drug allergies. REVIEW OF SYSTEMS: Unable to be obtained. PHYSICAL EXAMINATION: Vital Signs: Temperature 97 degrees, blood pressure 110/89, pulse 125, respiratory rate 21, oxygen saturation 86% on mechanical ventilator with spontaneous rate 16, FiO2 100%, tidal volume 500, and PEEP 12. General: Malnourished, intubated but not sedated. HEENT: Atraumatic. Trachea midline. Mucosa pink and dry. Respiratory: Mechanical ventilated. Auscultation reveals rhonchi bilaterally. Cardiovascular: Regular rate and rhythm. Gastrointestinal: Bowel sounds hyperactive in all 4 quadrants. Soft, nondistended. Extremities: No pedal edema. No cyanosis. No clubbing. Neurologic: Intubated and paralyzed. LAB DATA: White blood cell 8.67, hemoglobin 14.1, hematocrit 44.8, platelet 184,000. Sodium 140, potassium 5.8, chloride 99, carbon dioxide 12, BUN 33, creatinine 3.1. Glucose 62. ABG, pH 7.46, pCO2 is 48, PO2 is 131, HCO3 is 12.2, base excess -16.3, oxyhemoglobin 96.5, and lactate 5.70. IMAGING DATA: Chest x-ray showed worsening pulmonary edema. ASSESSMENT: This is a 58-year-old female with a medical history of chronic obstructive pulmonary disease with ongoing tobacco abuse and hypertension. She has been admitted to the medical floor since 12/09/2018 with intramuscular hematoma versus soft tissue neoplasm, and abdominal pain. She was Coded today at noon for about 5 minutes with intubation and paralyzation, and she was transferred to the ICU after the Code. 1. Acute hypoxemic respiratory failure. 2. Chronic obstructive pulmonary disease with ongoing tobacco abuse. 3. Shock. 4. Profound acidemia with mixed metabolic and respiratory acidosis. 5. Acute kidney injury with hypokalemia and hyponatremia. 6. Left lateral abdominal wall mass representing an intramuscular hematoma versus soft tissue neoplasm. 7. Acute encephalopathy. 8. Post cardiopulmonary resuscitation. PLAN: 1. Continue AC mechanical ventilator, and we will start weaning trials when appropriate. 2. Continue pressor, fluid resuscitation, antibiotic, and bronchodilators. 3. Follow up with chest x-ray, ABG, CBC, CMP, sputum culture, urine culture, and blood culture. 4. Dr. Chen and Dr. Garibay on board. 5. Continue GI and DVT prophylaxis. 6. Further recommendations pending hospital course. Thank you for the courtesy of this consult. Dictated by CHINO Adkins for Rashmi Chavis MD cc: CHINO Adkins MD [facility]
[2018-12-12 05:29] LABS: ALLEN TEST NO; BE -4.1 mmoll (-3.0-3.0); BLOOD TYPE ARTERIAL; HCO3-(ACT) 21.7 mmoll (20.0-26.0); METHB 1.5 % (0.0-1.5); MODALITY VENTILATOR; O2(CT) 17.1 mL/dL (15.0-23.0); O2HB 95.8 % (95.0-99.0); PCO2(98.6) 41 mmHg (35-45); PO2(98.6) 116 mmHg (60-100); SAMPLE BLOOD; SAO2 98.9 % (95.0-100.0); SRATE 16 BPM; THB 12.6 g/dL (11.5-17.4); TVOL 500 mL; pH(98.6) 7.33 (7.35-7.45)
[2018-12-12] MEDS: PRILOSEC NG SCH (06:13)
[2018-12-12] MEDS: HEPARIN SUBQ SCH ×4 (06:13→20:53)
[2018-12-12] MEDS: ATIVAN IV PRN ×4 (06:13→23:03)
[2018-12-12] MEDS: ZOSYN 2.25 GM in NS 50 ML IV SCH ×4 (06:13→20:53)
[2018-12-12 06:40] LABS: BASO# 0.04 X1000 (0.0-0.2); BASO% 0.6 % (0.0-0.8); EOS# 0.17 X1000 (0.0-0.7); EOS% 2.4 % (0.0-10.0); HEMOGLOBIN 12.2 g/dL (12.0-16.0); IMM GRAN% 1.4 % (0.0-0.5); LYMPH# 1.18 X1000 (1.2-3.4); LYMPH% 16.6 % (20.5-51.1); MCH 29.4 PG (27-31); MCV 89.2 FL (81-99); MONO# 0.45 X1000 (0.11-0.59); MONO% 6.3 % (1.7-9.3); NEUT# 5.16 X1000 (1.4-6.5); NEUT% 72.7 % (42.2-75.2); PLT 168 X1000 (130-400); RBC 4.15 XMIL (4.2-5.4); RDW 15.4 % (11.5-14.5)
[2018-12-12 06:56] LABS: AMYLASE 193 U/L (20-200)
[2018-12-12 06:57] LABS: LIPASE 387 U/L (13-60)
--- NOTE | 2018-12-12 07:10 | Diag Imaging Result Doc PS360 ---
EXAM: CHEST-1 VIEW 12/12/2018 HISTORY: SOB TECHNIQUE: AP portable at 0513 COMMENT: There is an endotracheal tube with its tip 2 cm above the norma. There is an NG tube with its tip below the diaphragm. There is patchy alveolar opacity bilaterally. Compared to 12/11/2018 this has not changed significantly. IMPRESSION: Pulmonary edema and/or pneumonia. Electronically signed by Saji Triplett 12/12/2018 7:08 AM
[2018-12-12 07:15] LABS: ALBUMIN 2.4 g/dL (3.5-5.0); CALCIUM 7.2 mg/dL (8.8-10.2); CREATININE 3.3 mg/dL (0.5-0.9); MAGNESIUM 2.3 mg/dL (1.5-2.7); PHOSPHORUS 4.9 mg/dL (2.7-4.5); POTASSIUM 4.6 mmol/L (3.5-5.1)
[2018-12-12] MEDS ORDERED: TYLENOL NG PRN (09:37)
[2018-12-12] MEDS: MORPHINE IV PRN ×2 (09:51→19:44)
--- NOTE | 2018-12-12 10:58 | PROGRESS NOTE ---
DATE: 12/12/2018 INTERVAL HISTORY: The patient remained intubated. Her ABG suggested improvement in acidemia. She did not have any other acute overnight events. She did have hypoglycemia for which I am starting her on tube feeds. VITAL SIGNS: Temperature 100.3 degrees. She remains tachycardic with heart rate of 122, respiratory rate 16, and blood pressure 70/60. Her MAP is 65. She is still on mechanical ventilator. She has p.r.n. medication for antianxiety and pain. SUBJECTIVE: She is intubated. She appears fidgety and moving all of her extremities, trying to pull the NG tube for which she will require sedating medication. OBJECTIVE: Pupils: Right pupil reacting to light adequately. Left pupil appears haziness, and it is not reacting. I will confirm with the family that it is surgical - family reports it to have glaucoma. Air entry bilaterally equal. She has inspiratory crackles bilaterally with rhonchi. No wheezes. S1, S2 normal. Tachycardic. Appears sinus on bedside monitor. No murmur, rub, or gallop. Abdomen is soft. Hypoactive bowel sounds. Tympanic to percussion. She has mild bilateral lower extremity edema. She has an NG tube. She also has a central line which was placed by surgical team on the right femoral site. She has urine catheter, and she is making minimal urine. Neurologic: She is moving both upper and lower extremities on painful stimuli. LABORATORY: Labs are suggestive of normal hemoglobin, hematocrit, and platelet count. Her metabolic acidosis has improved. Her lactic acidosis has normalized. Her potassium has normalized. She continues to have elevated BUN and creatinine with minimal urine output. Her troponin's was flat with 0.05. MICROBIOLOGY: Blood cultures and urine culture are in lab. Sputum culture is growing gram- positive cocci and gram-negative rods. ASSESSMENT AND PLAN: 1. Acute hypoxic respiratory failure septic shock due to pneumonia bilateral lower lobe with of baseline COPD, and multiple other metabolic derangement. Continue intubation and mechanical ventilation as per Pulmonology recommendation. Her oxygen requirement has been stable. We will decrease FiO2 as tolerated. I will continue intravenous linezolid and intravenous Zosyn. Follow up final sputum culture . Continue Norepinephrine with goal MAP >65 mmHg. 2. Cardiorespiratory arrest requiring calcium gluconate and epinephrine of about 4 minutes duration on 12/11/2018. This was likely in the setting of multiple metabolic derangement and hypoxemic respiratory failure. I will address underlying conditions. 3. Profound metabolic and respiratory acidosis, now significantly improved. Her lactate has become normal. I will stop bicarbonate drip, and she is mechanically ventilated. Her hyperkalemia has also resolved. 4. Acute kidney injury. Potential contributors include hypoxic respiratory failure and shock versus contrast induced kidney damage. Her acidosis hyperkalemia has resolved, and there is no urgent need of dialysis. Nephrology on board. I will continue Echols catheter for close input and output monitoring. 6. Hypoglycemia and nutrition. I will start patient on nasogastric tube feedings. I will also consider getting an abdominal x-ray to rule out any small bowel obstruction since her NG tube was putting out more than 500 mL output yesterday. 7. Left lateral abdominal wall mass or collection on presentation. Surgical team on board. We are awaiting stabilization of her cardiorespiratory status at which point a biopsy would be performed. 8. Severe pulmonary hypertension, and right ventricular enlargement. This could be in the setting of profound hypoxia. Her baseline history of chronic obstructive pulmonary disease. She does have elevated D-dimer. I will follow up with ultrasound lower extremity to rule out DVT, suspecting a large pulmonary embolism could contribute to it. Echocardiogram did have moderate pericardial effusion as per the discussion with Cardiology. We will continue to monitor. 9. Disposition: Patient remains critical in ICU. More than 30 minutes was spent in taking care of this patient. Plan of care would be discussed with the patient's family. His son is at bedside, and I answered all of his questions. cc: Brandyn Campos MD MTDD
--- NOTE | 2018-12-12 17:13 | NEPHROLOGY PROGRESS NOTE ---
DATE: 12/12/2018 SUBJECTIVE: She is unresponsive on the ventilator. Sedated. OBJECTIVE: Vital Signs: Blood pressure 84/64, heart rate 124. Afebrile. Intake 1.9 L, output 1 L with only 250 mL of urine output. General: Again, unresponsive. Skin: Warm and dry. HEENT: Pupils are equal. Oropharynx is dry. Neck: Neck veins are not appreciated. Heart: Irregular and tachycardic. Lungs: Equal. No crackles. Coarse breath sounds. Abdomen: Benign. No tenderness is elicited. Bowel sounds are present but diminished. Extremities: 2+ edema. No clubbing or cyanosis. IMPRESSION: Acute kidney injury. Urine output is low but acceptable. Creatinine is actually unchanged over the last 12 hours, BUN 40, creatinine 3.3. We will continue to hold and re- evaluate her possible need for dialysis in the morning. cc: Adalberto Garibay MD
--- NOTE | 2018-12-12 19:08 | PULMONOLOGY PROGRESS NOTE ---
DATE: 12/12/2018 SUBJECTIVE: The patient is unresponsive. She remains on mechanical ventilation. She remains on Levophed for shock. OBJECTIVE: Current temperature 99.8 degrees, maximum temperature 100.3 degrees, BP 82/57, heart rate 125, respiratory rate 16, oxygen saturation 99% on mechanical ventilation.HEENT: Pupils are equal but sluggish. Oropharynx is without overt lesions. Endotracheal tube is in position with bloody secretions identified. Cardiac: Increased rate, regular rhythm with prominent PMI. Chest: Reveals diffuse bilateral rhonchi. Abdomen: Soft. No bowel sounds present. Extremities: Are cool to the touch. LABORATORIES: Chest x-ray reveals cardiomegaly and diffuse bilateral infiltrates with slight sparing of the left apex. Endotracheal tube in good position. Microbiology reveals sputum growing gram-positive cocci and gram-negative rods. Arterial blood gas reveals a pH 7.33, pCO2 of 41, pO2 of 116. Chemistry. Sodium 134, potassium 4.6, chloride 98, bicarbonate 22, BUN 40, creatinine 3.3, albumin 2.4. IMPRESSION: A 58-year-old with 1. Chronic obstructive pulmonary disease. 2. Ongoing tobacco use/nicotine addiction. 3. Moderate to severe pulmonary hypertension. 4. Hemoptysis. 5. Cardiogenic shock. 6. Acute hypoxemic respiratory failure. 7. Acute renal failure. 8. Pneumonia. 9. Status post cardiopulmonary arrest. DISCUSSION: A 58-year-old with problems outlined above. The patient's physiologic status was poor prior to the arrest. She now is critically ill and has a high risk of dying during this hospitalization. RECOMMENDATIONS: 1. Continue full ventilatory support. 2. Continue current antibiotic regimen. 3. Continue vasopressors and wean as tolerated. 4. Nephrology is on board. 5. Prognosis is guarded to poor. Time spent in critical care management: 30+ minutes cc: Stephan Salamanca MD [facility]ITALMaxime
--- NOTE | 2018-12-12 20:12 | GENERAL SURGERY PROGRESS NOTE ---
DATE: 12/12/2018 SUBJECTIVE: The patient remains in the ICU on a ventilator and somewhat responsive. She is off pressors as of this morning. OBJECTIVE: Vital Signs: She is afebrile. Pulse is 120s. Blood pressure 78 systolic. General: She is somnolent and not responsive to me at this time. CV: Tachycardic and regular. Respiratory: Coarse bilateral breath sounds. GI: Soft, nondistended. Left lateral abdominal wall firmness again noted, but unchanged. LABORATORY: Reviewed and notable for improving acidosis and acidemia. IMAGING: Consistent with bilateral lower lobe pneumonia. ASSESSMENT AND PLAN: A 58-year-old female with: 1. Septic shock, likely secondary to pneumonia. 2. Respiratory failure. 3. Acute kidney injury. 4. Left lateral abdominal wall mass. We are planning future biopsy when she is clinically stable. cc: Bartolo Chen MD
[2018-12-13] MEDS: ZYVOX 600 MG/D5W 600 MG/300 ML IVPB IV SCH (01:15)
[2018-12-13] MEDS: DUONEB (A & A) INH SCH ×6 (03:26→22:59)
[2018-12-13] MEDS: ZOSYN 2.25 GM in NS 50 ML IV SCH ×2 (03:58→04:56)
[2018-12-13] MEDS: HEPARIN SUBQ SCH ×3 (04:22→20:49)
[2018-12-13 04:37] LABS: BE -2.4 mmoll (-3.0-3.0); BLOOD TYPE ARTERIAL; PCO2(98.6) 42 mmHg (35-45); PO2(98.6) 113 mmHg (60-100); SAMPLE BLOOD; pH(98.6) 7.35 (7.35-7.45)
[2018-12-13 04:38] LABS: ALLEN TEST YES; METHB 1.4 % (0.0-1.5); MODALITY VENTILATOR; O2(CT) 16.9 mL/dL (15.0-23.0); O2HB 96.1 % (95.0-99.0); SAO2 99.5 % (95.0-100.0); SRATE 16 BPM; THB 12.4 g/dL (11.5-17.4); TVOL 500 mL
[2018-12-13] MEDS: PRILOSEC NG SCH (06:03)
[2018-12-13] MEDS: LEVOPHED 8 MG in D5 1/2 NS 250 ML IV SCH ×2 (06:03→19:33)
[2018-12-13 06:36] LABS: ALBUMIN 2.3 g/dL (3.5-5.0); CREATININE 2.8 mg/dL (0.5-0.9); PHOSPHORUS 4.4 mg/dL (2.7-4.5); POTASSIUM 4.3 mmol/L (3.5-5.1)
[2018-12-13] MEDS: MORPHINE IV PRN (06:40)
[2018-12-13] MEDS: ATIVAN IV PRN ×2 (06:41→20:49)
--- NOTE | 2018-12-13 08:47 | Diag Imaging Result Doc PS360 ---
CHEST-1 VIEW - 12/13/2018 INDICATION: SOB COMPARISON: 12/12/2018 FINDINGS: Support tubes are stable and in good position. Stable significant cardiomegaly. Stable multilobar infiltrate throughout the right lung. Stable infiltrate throughout the left lung base as well. No pneumothorax or large pleural effusion. IMPRESSION: No change from prior. Electronically signed by Trung Collier 12/13/2018 8:44 AM
--- NOTE | 2018-12-13 10:29 | Diag Imaging Result Doc PS360 ---
ABDOMEN FLAT/UPRIGHT - 12/13/2018 INDICATION: R/o SBO COMPARISON: 12/11/2018 FINDINGS: There is a nasogastric tube in good position in the stomach. There is significant cardiomegaly and infiltrates throughout the lung bases. There is a right femoral vascular catheter with the tip over the right side of the sacrum. There is mild constipation with formed stool throughout the transverse colon. No small bowel dilation. No definite free air. IMPRESSION: Constipation. No small bowel obstruction. Electronically signed by Trung Collier 12/13/2018 10:27 AM
[2018-12-13] MEDS: ROCEPHIN 2 GM in NS 50 ML IV SCH (11:05)
[2018-12-13] MEDS ORDERED: SODIUM BICARBONATE 8.4% 150 MEQ in D5W 1,000 ML IV SCH (12:30)
--- NOTE | 2018-12-13 12:33 | PROGRESS NOTE ---
DATE: 12/13/2018 INTERVAL HISTORY: No acute events overnight. The patient continues to remain on pressors. Her oxygen requirement was decreasing. She had fever of 100.3 degrees. Sputum culture is growing Enterobacter and MSSA. Tube feeds could not be started on her since she had really high residuals. SUBJECTIVE: Patient is intubated. She wiggles to strong verbal stimuli, on ventilator. The patient's family is at bedside. VITAL SIGNS: T-max of 100.3 degrees yesterday morning. After that, she has been afebrile. Pulse of 110, respiratory 16, maintaining MAP more than 65 mmHg on norepinephrine at 10 mcg/minute. PHYSICAL EXAMINATION: HEENT: Right pupil is reacting to light adequately. Left pupil has corneal sclerosis and is not reacting, likely because of history of glaucoma. Lungs: Inspiratory crackles with significant rhonchi on the right adam lung field. Adequate air entry with mild inspiratory crackles on left adam lung field. No wheezes. Cardiovascular: S1, S2 normal. Tachycardic, sinus. No murmur, rub, or gallop. Abdomen: Soft, appears distended with hypoactive bowel sounds and tympanic to percussion. Extremities: She has mild bilateral lower extremity edema. She has NG tube, right-sided femoral central line, endotracheal tube, and urine catheter. She is moving all of extremities to painful stimuli. Input and output suggest she had 600 mL of urine output so far. LABORATORY DATA: No CBC today. ABG suggestive of pH of 7.35, PO2 of 113 on 60% FiO2. She has mild hyponatremia, hypochloremia, low bicarbonate, persistently fluctuating anion gap, elevated BUN and creatinine which is slightly better than before. MICROBIOLOGY: No blood culture growth. Sputum culture had Enterobacter cloacae and Staphylococcus aureus which is MSSA. IMAGING: Chest x-ray performed today suggests stable significant cardiomegaly, multilobar infiltrate throughout the right lung, stable infiltrate throughout the left lung base without any large pleural effusion. ASSESSMENT AND PLAN: 1. Cardiorespiratory arrest requiring calcium gluconate and epinephrine of about 4 minutes duration on 12/11/2018 in the setting of multiple metabolic derangement and acute hypoxic respiratory failure. She remains in ICU and she did not require hypothermia protocol as she was responding after the resuscitation. 2. Acute hypoxic respiratory failure and septic shock due to bilateral lower lobe pneumonia with methicillin-susceptible Staphylococcus aureus and Enterobacter cloacae on top of baseline chronic obstructive pulmonary disease. Continue intubation, mechanical ventilation as per Pulmonology recommendation and wean down FiO2. Change antibiotics to intravenous ceftriaxone. Continue norepinephrine with goal MAP of more than 65 mmHg. 3. Acute kidney injury and metabolic derangement including hyperkalemia, anion gap metabolic acidosis and respiratory acidosis requiring bicarbonate drip initially. Currently appears to be improving. Continue Echols catheter for close input and output monitoring. Nephrology on board. No need of acute dialysis at the moment. 4. Nutrition and hypoglycemia. The patient has not been receiving nasogastric tube feedings considering her significant residuals. I will get abdominal x-ray to rule out any small bowel obstruction. Accordingly, I will consider starting her on intravenous fluids. 5. Left lateral abdominal wall mass or collection on presentation. Surgical team on board, awaiting stabilization of her multiple medical problems before performing biopsy. 6. Severe pulmonary hypertension with right ventricular enlargement and moderate pericardial effusion. This could be in the setting of profound hypoxia and baseline chronic obstructive pulmonary disease. Ultrasound of lower extremity has been performed. I will await final results to assess for any presence of deep venous thrombosis. Continue heparin subcutaneous for deep venous thrombosis prophylaxis. 7. Disposition. Patient's condition remains critical. TIME SPENT: More than 30 minutes of critical care time was spent in taking of this patient. Plan of care was discussed with multiple family members at bedside. All of their questions have been satisfactorily answered. cc: Brandyn Campos MD
[2018-12-13] MEDS ORDERED: VANCOMYCIN 1 GM/NS 1 GM/250 ML IVPB IV ONE (13:00)
[2018-12-13] MEDS: LACTULOSE NG SCH ×2 (17:09→20:49)
[2018-12-13] MEDS: DULCOLAX PR SCH ×2 (17:09→20:50)
--- NOTE | 2018-12-13 18:55 | PULMONOLOGY PROGRESS NOTE ---
DATE: 12/13/2018 SUBJECTIVE: The patient responds to painful stimulus. She does not have purposeful movements. OBJECTIVE: The patient has been afebrile for the last 24 hours. She remains on vasopressors. Blood pressure 96/74, heart rate 110, respiratory rate 16, oxygen saturation 98% on 60% FIO2. HEENT: Pupils are equal but sluggish. Oropharynx appears dry. Neck is supple. Chest reveals coarse rhonchi bilaterally. Cardiac exam: S1, S2. Abdomen is soft. No bowel sounds present. Extremities reveal 1+ peripheral edema. LABORATORY DATA: Sputum culture reveals a methicillin-sensitive Staphylococcus aureus and Enterobacter cloacae species. Arterial blood gas reveals a pH of 7.35, pCO2 of 42, pO2 of 113. Sodium 133, potassium 4.3, chloride 94, bicarbonate 20, BUN 46, creatinine 2.8. DIAGNOSTIC DATA: Chest x-ray reveals cardiomegaly with diffuse infiltrate throughout the right lung. IMPRESSION: A 58-year-old with: 1. Pneumonia. 2. Chronic obstructive pulmonary disease. 3. Ongoing tobacco use/nicotine addiction. 4. Acute hypoxemic respiratory failure. 5. Hemoptysis. 6. Septic shock. 7. Acute renal failure. 8. Status post cardiopulmonary arrest. PLAN: 1. Continue full ventilatory support. 2. Add vancomycin to current regimen to cover Staphylococcus aureus. 3. Continue vasopressors and wean as tolerated. 4. Fluid bolus today. 5. Prognosis remains guarded. Time spent in critical care management 30-plus minutes. cc: Stephan Salamanca MD
--- NOTE | 2018-12-13 22:34 | GENERAL SURGERY PROGRESS NOTE ---
DATE: 12/13/2018 Ms Leung remains on the ventilator and is unresponsive. Heart rate 113, blood pressure 118/89. Her clinical exam was about the same. BUN is 46, creatinine 2.8. We will continue to follow along. No intervention indicated at this time. cc: Pedro Morales MD
--- NOTE | 2018-12-13 22:44 | NEPHROLOGY PROGRESS NOTE ---
DATE: 12/13/2018 SUBJECTIVE: She is sedated on the ventilator. OBJECTIVE: Vital Signs: Blood pressure 106/78, heart rate 115, respirations 17. Afebrile. General: No acute distress. Skin: Warm and dry. Neck: Veins are not appreciated. Cardiovascular: Heart is regular tachycardic with a murmur. Lungs: Are equal. No crackles. Abdomen: Soft, nontender. Bowel sounds present. Extremities: Have 2+ edema. No clubbing or cyanosis. IMPRESSION: Acute kidney injury. Urine output remains low but improved. Her creatinine is slowly improving. She still has significant edema. Albumin is quite low at 2.3 so I will administer albumin over the next 3 days. No other changes. cc: Adalberto Garibay MD
[2018-12-14] MEDS: DUONEB (A & A) INH SCH ×6 (02:59→23:01)
[2018-12-14] MEDS: ATIVAN IV PRN ×4 (04:08→23:48)
[2018-12-14 04:40] LABS: ALLEN TEST YES; BE 0.2 mmoll (-3.0-3.0); BLOOD TYPE ARTERIAL; O2(CT) 15.6 mL/dL (15.0-23.0); O2HB 94.5 % (95.0-99.0); PCO2(98.6) 46 mmHg (35-45); PO2(98.6) 78 mmHg (60-100); SAMPLE BLOOD; SAO2 97.8 % (95.0-100.0); SRATE 16 BPM; THB 11.7 g/dL (11.5-17.4); TVOL 500 mL; pH(98.6) 7.36 (7.35-7.45)
[2018-12-14 04:43] LABS: MODALITY VENTILATOR
[2018-12-14] MEDS: HEPARIN SUBQ SCH ×3 (04:56→21:07)
[2018-12-14 05:14] LABS: ALBUMIN 2.1 g/dL (3.5-5.0); CALCIUM 8.4 mg/dL (8.8-10.2); CREATININE 1.9 mg/dL (0.5-0.9); MAGNESIUM 2.4 mg/dL (1.5-2.7); PHOSPHORUS 3.8 mg/dL (2.7-4.5); POTASSIUM 4.7 mmol/L (3.5-5.1)
[2018-12-14] MEDS ORDERED: D50W SYRINGE IV ONE (05:21)
[2018-12-14] MEDS: PRILOSEC NG SCH (06:20)
[2018-12-14] MEDS: LEVOPHED 8 MG in D5 1/2 NS 250 ML IV SCH (07:13)
--- NOTE | 2018-12-14 07:51 | Diag Imaging Result Doc PS360 ---
CHEST-1 VIEW - 12/14/2018 INDICATION: SOB COMPARISON: 12/13/2018 FINDINGS: Stable endotracheal tube and nasogastric tube in good position. Stable significant cardiomegaly. There has been substantial improvement in the right perihilar interstitial infiltrate, with worsening at the left hilum and left lingula. No pneumothorax or large pleural effusion. IMPRESSION: Shifting interstitial opacities in the lungs bilaterally suggesting shifting patterns of pulmonary edema. Overall no change from prior. Electronically signed by Trung Collier 12/14/2018 7:48 AM
[2018-12-14] MEDS: ALBUMIN 25% IV SCH (08:49)
[2018-12-14] MEDS: DULCOLAX PR SCH ×2 (08:49→21:07)
[2018-12-14] MEDS: LACTULOSE NG SCH ×2 (08:49→21:07)
[2018-12-14] MEDS: ROCEPHIN 2 GM in NS 50 ML IV SCH (09:06)
--- NOTE | 2018-12-14 09:44 | PROGRESS NOTE ---
DATE: 12/14/2018 INTERVAL HISTORY: No acute events overnight. The patient did get an x-ray of the abdomen which had suggested constipation for which she was started on lactulose and bisacodyl suppository. She has not had a bowel movement. However, she has been passing gas. Tube feeds have been held because of high residuals. Her urine output is improving. Acute kidney injury is improving. The patient is intubated, nonresponsive. OBJECTIVE: Vital Signs: Temperature of 98.8 degrees, pulse 111, respiratory rate 16, blood pressure 110/83, maintaining MAPS more than 65 mmHg. However, she is requiring norepinephrine. General: Intubated. She starts moving with strong verbal stimuli. HEENT: Right pupil is reacting to light. Left has corneal xerosis. Lungs: Air entry bilaterally equal. No wheezes. She does have significant rhonchi on the right adam lung field and left inframammary region. Cardiovascular: S1, S2 normal, tachycardic. No murmur or gallop. Abdomen: Soft, distended with active bowel sounds. Nontender. Tympanic to percussion. Extremities: She has bilateral lower extremity mild edema. She has an NG tube right-sided femoral central line, endotracheal tube, and a urine catheter. She is moving all extremities to painful stimuli. Input and output suggests she had urine output more than 1 L in the last 24 hours. LABORATORY DATA: ABG suggestive of PO2 of 78 on 60% FiO2. She does have improving acute kidney injury with BUN of 42, creatinine of 1.9. Her sugars have been 85. Microbiology: No positive data except the sputum culture. IMAGING: Chest x-ray today morning suggests no oral change from the prior. ASSESSMENT AND PLAN: 1. Cardiorespiratory arrest requiring 4 minutes of resuscitation on 12/11/2018, in the setting of multiple metabolic derangement including hyperkalemia and acute hypoxic respiratory failure because of pneumonia. She was not on hypothermia protocol because of sepsis and her responsiveness after resuscitation. 2. Acute hypoxic respiratory failure and septic shock due to bilateral lower lobe pneumonia with methicillin-susceptible Staphylococcus aureus and Enterobacter cloacae on baseline chronic obstructive pulmonary disease. Continue mechanical ventilation as per Pulmonology recommendation. Wean the FiO2. Continue intravenous ceftriaxone and norepinephrine with goal of more than 65 mmHg. I will continue heparin for deep venous thrombosis prophylaxis, omeprazole for stress ulcer prophylaxis, and chlorhexidine for ventilator associated pneumonia prophylaxis. 3. Acute kidney injury, hyperkalemia, anion gap metabolic acidosis and respiratory acidosis requiring bicarbonate drip initially. Currently appears to be improving with improving in urine output. Continue Echols catheter for close input and output monitoring. Nephrology on board and she has been started on intravenous albumin. 4. Nutrition and hypoglycemia with constipation. Continue patient on lactulose and bisacodyl suppositories and attempt NG tube feeding again. If not, then I would consider starting her on intravenous nutrition. 5. Left lateral abdominal wall mass or collection on presentation. Surgical team on board. Awaiting the patient's hemodynamic stabilization before attempting biopsy. 6. Severe pulmonary hypertension with right ventricular enlargement and moderate pericardial effusion could be in the setting of acute hypoxic respiratory failure on baseline chronic obstructive pulmonary disease. No evidence of reported deep venous thrombosis so far. However, the report is pending. 7. Disposition. The patient's condition remains critical. More than 30 minutes of critical care time was spent in the care of this patient. Plan of care yesterday was discussed with the patient's daughter and son at bedside. All of their questions have been answered. cc: Brandyn Campos MD
[2018-12-14] MEDS: PERIDEX MT SCH ×2 (10:03→21:07)
--- NOTE | 2018-12-14 14:40 | PULMONOLOGY PROGRESS NOTE ---
DATE: 12/14/2018 SUBJECTIVE: Patient responds to painful stimuli. She does not respond to voice. OBJECTIVE: Vital Signs: The patient has been afebrile for the last 24 hours. Blood pressure 110/88, heart rate 118, respiratory rate 16, oxygen saturation 96%. HEENT: Pupils are equal. Oropharynx appears clear. Neck: Supple. Chest: Reveals coarse rhonchi bilaterally. Cardiac exam: S1, S2. Abdomen: Soft. Extremities: Reveal trace edema. LABORATORIES: Sodium 133, potassium 4.7, chloride 96, bicarbonate 25, BUN 42, creatinine 1.9. Arterial blood gas reveals a pH of 7.36, pCO2 of 46, pO2 of 78. No new microbiology data. IMAGING: Chest x-ray reveals cardiomegaly with left greater than right parenchymal infiltrate. IMPRESSION: A 58-year-old with: 1. Pneumonia. 2. Chronic obstructive pulmonary disease. 3. Ongoing tobacco use/nicotine addiction. 4. Acute hypoxemic respiratory failure. 5. Resolving septic shock. 6. Resolving hemoptysis. 7. Resolving acute renal failure. 8. Moderate to severe pulmonary hypertension. 9. Status post cardiopulmonary arrest. 10. Altered mental status. The patient is not receiving significant sedation. RECOMMENDATIONS: 1. Continue ventilatory support. 2. Continue current antibiotic regimen. 3. Consider Neurology/EEG evaluation. 4. We will schedule CT scan of the brain tomorrow morning. 5. Overall prognosis looks guarded to poor given her mental status and moderate to severe pulmonary hypertension with cardiac arrest. Time spent in critical care management: 30+ minutes cc: MD JESSY Kincaid
[2018-12-15] MEDS: D50W SYRINGE IV PRN ×3 (00:38→20:38)
[2018-12-15] MEDS: DUONEB (A & A) INH SCH ×5 (03:10→19:49)
[2018-12-15 04:40] LABS: ALLEN TEST YES; BLOOD TYPE ARTERIAL; METHB 1.1 % (0.0-1.5); O2(CT) 17.4 mL/dL (15.0-23.0); O2HB 95.6 % (95.0-99.0); PCO2(98.6) 29 mmHg (35-45); PO2(98.6) 94 mmHg (60-100); SAMPLE BLOOD; SAO2 98.9 % (95.0-100.0); SRATE 16 BPM; THB 12.9 g/dL (11.5-17.4); TVOL 500 mL; pH(98.6) 7.41 (7.35-7.45)
[2018-12-15 04:41] LABS: MODALITY VENTILATOR
[2018-12-15] MEDS: HEPARIN SUBQ SCH ×3 (05:05→22:16)
[2018-12-15] MEDS: MORPHINE IV PRN ×3 (05:23→14:39)
--- NOTE | 2018-12-15 06:33 | Diag Imaging Result Doc PS360 ---
CHEST-1 VIEW - 12/15/2018 INDICATION: SOB COMPARISON: 12/14/2018 FINDINGS: Stable endotracheal tube and nasogastric tube in good position. There has been significant decrease in the density of the left perihilar and basilar infiltrate. Stable patchy infiltrate throughout the right upper lobe and right lung base. Stable significant cardiomegaly. No pneumothorax or pleural effusion. IMPRESSION: Improved aeration of the left lung. Electronically signed by Trung Collier 12/15/2018 6:30 AM
[2018-12-15 06:36] LABS: BASO# 0.08 X1000 (0.0-0.2); BASO% 0.7 % (0.0-0.8); EOS# 0.03 X1000 (0.0-0.7); EOS% 0.3 % (0.0-10.0); HEMOGLOBIN 12.1 g/dL (12.0-16.0); IMM GRAN# 0.08 X1000 (0.0-0.04); IMM GRAN% 0.7 % (0.0-0.5); LYMPH% 18.9 % (20.5-51.1); MCH 28.9 PG (27-31); MCHC 34.6 g/dL (33-37); MCV 83.5 FL (81-99); MONO# 0.89 X1000 (0.11-0.59); MPV 12.1 FL (7.4-10.4); NEUT# 7.94 X1000 (1.4-6.5); NEUT% 71.4 % (42.2-75.2); PLT 159 X1000 (130-400); RBC 4.19 XMIL (4.2-5.4); RDW 15.1 % (11.5-14.5); WBC 11.12 X1000 (4.8-10.8)
[2018-12-15] MEDS: PRILOSEC NG SCH (06:37)
[2018-12-15] MEDS: LEVOPHED 8 MG in D5 1/2 NS 250 ML IV SCH ×3 (06:38→18:45)
[2018-12-15 06:46] LABS: CALCIUM 9.5 mg/dL (8.8-10.2); CREATININE 1.8 mg/dL (0.5-0.9); PHOSPHORUS 4.5 mg/dL (2.7-4.5)
[2018-12-15 07:14] LABS: BANDS 14 % (0-1); LYMPHS 26 % (21-51); MONO 4 % (1-9); NRBC 1 % (0-0); SEGS 52 % (42-75)
[2018-12-15] MEDS: ALBUMIN 25% IV SCH (08:42)
[2018-12-15] MEDS: LACTULOSE NG SCH ×2 (08:42→22:16)
[2018-12-15] MEDS: DULCOLAX PR SCH ×2 (08:42→22:15)
[2018-12-15] MEDS: PERIDEX MT SCH ×2 (08:42→22:15)
[2018-12-15] MEDS ORDERED: CLINIMIX E 4.25%-5% SOLUTION 1,000 ML IV SCH (08:45)
[2018-12-15] MEDS ORDERED: PEPCID LIQUID NG SCH (09:00)
[2018-12-15] MEDS: ROCEPHIN 2 GM in NS 50 ML IV SCH (09:36)
--- NOTE | 2018-12-15 10:09 | NEPHROLOGY PROGRESS NOTE ---
DATE: 12/15/2018 SUBJECTIVE: Patient remains mechanically ventilated and sedated. OBJECTIVE: Vital Signs: Temperature 99.1 degrees, pulse 131, respiratory rate 19, blood pressure 102/84. Intake 571 mL, output 955 mL. General: This is a middle-aged female, currently critically ill and mechanically ventilated. HEENT: Normocephalic, atraumatic. She is orally intubated. Neck: Supple. There is no JVD. Cardiovascular: Tachycardic. Systolic murmur. Pulmonary: No rales or rhonchi. Has equal excursion. Abdomen: Soft. Hypoactive. : Echols catheter. Decreased urine output. Extremities: There is 1+ edema, more dependent edema to the lower areas. Integumentary: Skin is warm and dry, thin. Lab Data: WBC of 11.1, hemoglobin 12.1. Sodium 134, potassium 5.0, CO2 of 19, creatinine 1.8 (1.9), albumin 3.0, and calcium 9.5. ASSESSMENT AND PLAN: 1. Acute kidney injury. Her urine output has been noted to be declining over the last 24 hours. However, she still had almost a liter of urine output. Renal function otherwise stable. Her albumin is up to 3.0 today. We had given her albumin over the weekend. I will finish this dose today and then make a decision if she needs additional treatments. 2. Pneumonia, respiratory failure, remains on the ventilator. 3. Status post cardiorespiratory arrest. Followed by primary. Dictated by CHINO June for Adalberto Garibay MD Data reviewed, discussed with Jos Ochoa on 12/15/18. I agree with the above assessment and plan of care. cc: Adalberto Garibay MD [facility]ITAL[facility]
--- NOTE | 2018-12-15 11:27 | PROGRESS NOTE ---
DATE: 12/15/2018 INTERVAL HISTORY: I had an extensive discussion with the patient's two sons and daughter yesterday about patient's clinical condition. It was a challenging task to explain to them in detail about a lot of complicated medical aspects off her critical condition. I tried to answer all of their questions to best of my knowledge. In summary, I informed them that the patient's lungs are not functioning properly and she was on ventilator for that. The patient had really high blood pressure, called pulmonary hypertension in her heart because of her COPD, she has poor kidney function and that she has a really critical condition. I also explained to them that considering that the patient is not as alert as would have expected, I would consider imaging of her head in the future. SUBJECTIVE: Patient remains intubated. She was fighting the ventilator, so she had received intravenous lorazepam yesterday and intravenous morphine earlier today. Today she is not responding. She is intubated. VITALS: Temperature was 99.1, pulse of 130, respiratory 25, blood pressure 110/93, saturating 97% on 60% FiO2. PHYSICAL EXAMINATION: General: The patient is intubated. She has an NG tube and her tube feeds were held because of increased output and abdominal firmness. She does not appear in acute distress. HEENT: Right pupil reacting to light adequately. Left eye has corneal xerosis. Lungs: Air entry bilaterally equal. No wheeze. She does have inspiratory crackles right inframammary region. Cardiovascular: S1, S2 normal. No murmur, rub or gallop. Tachycardic. Abdomen: Soft, distended and tympanic to percussion. Hypoactive bowel sounds. Extremities: She has bilateral lower extremity edema. She also has a right-sided groin central line, endotracheal tube, NG tube, and a urine catheter. Today she is grimacing to painful stimuli on bilateral upper extremities, but not bilateral lower extremities. However, she had received morphine 3 hours prior to my examination. LABS: Suggestive of mild leukocytosis. Normal hemoglobin, hematocrit and platelet count. She does have normal pH. PO2 of 94 on 60% FiO2. Her electrolytes are largely in acceptable range except elevated BUN and creatinine. Microbiology: Blood culture no growth to date. IMAGING: Chest x-ray suggests improvement in infiltrate on the left lung. ASSESSMENT AND PLAN: 1. Cardiac respiratory arrest requiring 4 minutes of resuscitation on December 11 in the setting of multiple metabolic derangement including hyperkalemia, acute hypoxic respiratory failure because of pneumonia. She was not on hypothermia protocol because of sepsis and her responsiveness after resuscitation. 2. Acute hypoxic respiratory failure and septic shock due to bilateral lower lobe pneumonia with Staphylococcus aureus and Enterobacter cloacae on baseline history of COPD as well as severe pulmonary hypertension. Continue mechanical ventilation as per Pulmonology recommendation, intravenous ceftriaxone and norepinephrine to maintain MAP more than 65 mmHg. I will continue heparin for DVT prophylaxis, famotidine for stress ulcer prophylaxis and chlorhexidine for ventilator associated pneumonia prophylaxis. 4. Acute encephalopathy. The patient has been only intermittently requiring morphine and lorazepam. Despite that, her responsiveness is low, though she intermittently starts fighting the ventilator, her poor consciousness is of concern. I will follow up with CT scan to rule out cerebrovascular accident, hypoxic brain injury. Accordingly, we will consider Neurology consult as well as EEG. 5. Acute kidney injury, hyperkalemia, anion gap metabolic acidosis requiring bicarbonate drip initially, currently improving with improvement in urine output, hypoxic respiratory failure as well as intravenous contrast could have contributed to it to begin with. Continue Echols catheter for close input and output monitoring. Nephrology on board and she has been on intravenous albumin. 6. Nutrition and hypoglycemia during hospitalization. I will start patient on intravenous Clinimix. She has not been tolerating nasogastric tube feeding. 7. Left lateral abdominal wall mass or collection on presentation. Surgical Team on board, awaiting patient's hemodynamic stabilization before attempting a biopsy. 8. Disposition: Patient condition remains critical. More than 30 minutes of critical care time was spent in taking care of this patient. I explained to patient's son at bedside about her clinical condition in detail, her critical condition, and further medical management plan and answered all of his questions. TIME SPENT: More than 30 minutes were spent in taking care of this critically ill patient. cc: Brandyn Campos MD [facility]ERYMaxime
[2018-12-15] MEDS ORDERED: TYLENOL NG PRN (11:39)
--- NOTE | 2018-12-15 12:48 | Diag Imaging Result Doc PS360 ---
EXAM: CT HEAD W/O CONTRAST 12/15/2018 HISTORY: AMS with cardiac arrest TECHNIQUE: This exam was performed using automated exposure control, adjustment of mA or kV according to patient size, and/or use of iterative reconstruction technique. COMMENT: There are no previous studies available for comparison. There is no evidence of mass effect, bleed, or abnormal extra-axial fluid collection. There are some calcifications in the globus pallidus bilaterally. There is mucosal thickening and fluid in the right maxillary sinus and a mucous retention cyst in the left maxillary sinus. There is some mucosal thickening in the ethmoid air cells and there is fluid in the sphenoid sinuses bilaterally. Several of the mastoid air cells demonstrate air-fluid levels on both sides. The calvarium is intact. IMPRESSION: No evidence of acute intracranial disease. Sinusitis and mastoid effusions as described. Electronically signed by Saji Triplett 12/15/2018 12:45 PM
[2018-12-15] MEDS ORDERED: ATIVAN IV PRN (15:19)
[2018-12-15] MEDS ORDERED: NEO-SYNEPHRINE 50 MG in NS 250 ML IV SCH (15:30)
[2018-12-15 18:09] LABS: ALLEN TEST YES; BE -21.1 mmoll (-3.0-3.0); BLOOD TYPE ARTERIAL; HCO3-(ACT) 8.5 mmoll (20.0-26.0); METHB 0.7 % (0.0-1.5); O2(CT) 16.1 mL/dL (15.0-23.0); O2HB 97.1 % (95.0-99.0); PCO2(98.6) 25 mmHg (35-45); PO2(98.6) 110 mmHg (60-100); SAMPLE BLOOD; SAO2 99.8 % (95.0-100.0); SRATE 16 BPM; THB 11.7 g/dL (11.5-17.4); TVOL 500 mL
[2018-12-15 18:11] LABS: pH(98.6) 7.08 (7.35-7.45)
[2018-12-15 18:12] LABS: MODALITY VENTILATOR
[2018-12-15] MEDS ORDERED: SODIUM BICARBONATE 8.4% 150 MEQ in D5W 1,000 ML IV SCH (18:30)
--- NOTE | 2018-12-15 18:40 | Diag Imaging Result Doc PS360 ---
EXAM: CHEST-PORTABLE HISTORY: Eval for pulmonary edema TECHNIQUE: Chest single view COMPARISON: 5:15 AM FINDINGS: Interval decrease in the pulmonary edema. Endotracheal and nasogastric tubes remain in good position. IMPRESSION: Interval improvement. Electronically signed by Nikhil King 12/15/2018 6:37 PM
--- NOTE | 2018-12-15 18:43 | Diag Imaging Result Doc PS360 ---
EXAM: ABDOMEN FLAT/UPRIGHT HISTORY: ABdominal distention TECHNIQUE: Flat and upright, two views COMPARISON: 12/13/2018 FINDINGS: Nasogastric tube in wire overlies the esophagus and stomach. No free air beneath the diaphragm. The bowel loops are not dilated. No organomegaly. Vascular catheter overlies the right inguinal region. IMPRESSION: No bowel obstruction. Electronically signed by Nikhil King 12/15/2018 6:41 PM
--- NOTE | 2018-12-15 19:18 | PROGRESS NOTE ---
DATE: 12/15/2018 ADDENDUM: I was paged by the nurse that patient's blood pressure was not detectable and she had to reach maximum dose of norepinephrine, and so branch billing payroll clerk was consulted and patient has been started on phenylephrine. I immediately evaluated the patient at bedside. Patient appears to be hyperventilating with a respiratory rate of 36 per minute. She is less responsive to painful stimuli as compared to before. Her air entry appears bilaterally equal. No wheeze, rhonchi, and mild crackles bilateral bases. S1, S2, tachycardic with heart rate of 110. No murmur, rub, or gallop. Abdomen is again distended, tympanic to percussion, but appears soft. She has very hypoactive bowel sounds. Her urine output has significantly decreased and she has not made much urine over last few hours or so. On vitals evaluation, she is afebrile to touch, pulse of 113, blood pressure on manuals have been more than 90, and I am able to palpate her radial pulses as well as brachialis pulses bilaterally. ASSESSMENT AND PLAN: 1. I will get a stat chest x-ray and stat abdominal x-ray to rule out any pulmonary edema or bowel obstruction. 2. I will also order a stat arterial blood gases as well as stat CMP with lipase and amylase. ABGs returned with significant metabolic acidosis with pH of 7.0. I am awaiting kidney function tests. However, considering significant acidosis, I am going to start her on a bicarbonate drip. Plan of care discussed with the nursing team at bedside. I will consider CT scan Abdomen/pelvis in the morning once she is more stable to evaluate for any bowel ischemia since she has elevated lactate. However, considering her tenuous condition she may not be a candidate for an urgent surgery. Her CT head in the morning was unremarkable. She is on Norepinephrine and Phenylephrine drips right now. I will discuss with the night team about following up with blood test results which have been ordered stat. cc: MD JESSY Billings
[2018-12-15] MEDS ORDERED: EPINEPHRINE SYRINGE IV ONE (20:30)
[2018-12-15] MEDS ORDERED: DOPAMINE 800 MG/D5W 800 MG/500 ML IV.SOLN ONE (20:30)
[2018-12-15 20:37] LABS: HEMATOCRIT 34.2 % (37.0-47.0); HEMOGLOBIN 11.3 g/dL (12.0-16.0); WBC 10.74 X1000 (4.8-10.8)
[2018-12-15 20:38] LABS: BASO# 0.08 X1000 (0.0-0.2); BASO% 0.7 % (0.0-0.8); EOS# 0.01 X1000 (0.0-0.7); EOS% 0.1 % (0.0-10.0); IMM GRAN# 0.11 X1000 (0.0-0.04); LYMPH# 2.36 X1000 (1.2-3.4); MCH 29.7 PG (27-31); MONO# 1.24 X1000 (0.11-0.59); MONO% 11.5 % (1.7-9.3); MPV 12.4 FL (7.4-10.4); NEUT# 6.94 X1000 (1.4-6.5); NEUT% 64.7 % (42.2-75.2); PLT 96 X1000 (130-400)
[2018-12-15 20:49] LABS: AMYLASE 87 U/L (20-200); LIPASE 38 U/L (13-60)
[2018-12-15] MEDS ORDERED: PRILOSEC NG SCH (21:00)
[2018-12-15 21:02] LABS: ALB/GLOB RATIO 0.9; ALBUMIN 3.2 g/dL (3.5-5.0); CALCIUM 9.3 mg/dL (8.8-10.2); CREATININE 2.7 mg/dL (0.5-0.9); POTASSIUM 7.3 mmol/L (3.5-5.1); TOTAL BILIRUBIN 9.03 mg/dL (0.20-1.00); TOTAL PROTEIN 6.7 g/dL (6.3-8.3)
[2018-12-15 21:04] LABS: LYMPHS 17 % (21-51); MONO 9 % (1-9); NRBC 4 % (0-0); SEGS 71 % (42-75); TARGET CELLS 1+
[2018-12-15 21:05] LABS: POIKILOCYTOSIS OCCASIONAL
[2018-12-15] MEDS ORDERED: D10W 1,000 ML IV SCH (21:45)
[2018-12-15] MEDS ORDERED: EPINEPHRINE 4 MG in NS 250 ML IV SCH (21:45)
[2018-12-15 22:12] VITALS: BP 183/20
[2018-12-15] MEDS ORDERED: DOPAMINE 800 MG/D5W 800 MG/500 ML IV.SOLN IV SCH (22:15)
[2018-12-15] MEDS ORDERED: NS 1,000 ML ONE ×2 (23:20→23:23)
--- NOTE | 2018-12-16 16:08 | Extremity Venous Study ---
PROCEDURE NAME: Venous U/S Bilateral Legs - 12/11/2018 REFERRING PHYSICIAN: Dr. Brandyn Campos. INTERPRETING PHYSICIAN: Dr. Pedro Morales. DATAPOWER CONSULTANT: Juan F. FINDINGS: The patient has a central venous line in the right common femoral vein. The left common femoral, bilateral superficial femoral, bilateral popliteal, bilateral deep femoral, and bilateral posterior tibial and peroneal veins are imaged. All veins identified are compressible. The right common femoral and deep femoral veins are not seen due the central line. INTERPRETATION: No evidence of deep venous thrombosis of either lower extremity in the veins identified. The right common and deep femoral veins are not identified due to a central venous line. cc: MD Brandyn Coleman MD
--- NOTE | 2018-12-17 04:03 | PROGRESS NOTE ---
DATE: 12/16/2018 CRITICAL CARE PROGRESS NOTE: At 2026, a Code Blue was called by the nurses. The patient's nurse reports that she became bradycardic, had worsening hypotension, and ultimately did braxton down and become pulseless. A Code Blue was called. ACLS protocols were immediately initiated. CPR was begun. Respirations were being provided per Ambu bag. The patient is intubated. Dr. Rothman, the attending physician for the hospitalist service as well as Dr. Sharon Reveles the ER physician, and I did immediately respond to the code. During the code emergency, ACLS medications of epinephrine, sodium bicarbonate, D50, as well as dopamine were given. Upon rhythm and pulse checks, the patient was noted to be in PEA, as well as did have return of pulse at times upon rhythm checks of a wide QRS complex tachycardia. Please see Code Blue documentation for exact times. Dr. Rothman did an speak with the patient's immediate family members which included her 2 sons and daughter. They were brought to the bedside during the patient's resuscitation efforts. The patient's daughter did ask for all resuscitative measures to be ended. At this time, Dr. Rothman did order all resuscitative measures to be stopped. The patient's time of was called at 2054. At 2054 the patient had no palpable pulse, no heart tones were auscultated, she had no spontaneous respirations, and was asystole on the cafeteria monitor. Please see nurse's notes and Code Blue documentation for further details. Dictated by CHINO Nunez for Antonio Rothman MD cc: Antonio Rothman MD
--- NOTE | 2018-12-18 22:20 | DISCHARGE SUMMARY ---
ADMISSION DATE: 12/12/2018 DISCHARGE DATE: 12/15/2018 DATE OF : 12/15/2018. TIME OF : Approximately 8:55 p.m. on 12/15/3018. CAUSE OF : Severe pulmonary hypertension likely in the setting of chronic obstructive pulmonary disease. OTHER CONTRIBUTING FACTORS: Acute kidney failure, tobacco abuse, hypoxic respiratory failure because of pneumonia. HOSPITAL COURSE SUMMARY: Miss Leung is a 58-year-old lady who initially presented to the hospital on 12/09/2018 with chief complaints of abdominal pain on the left side with abdominal swelling about 3 days duration which was progressively getting worse. She also had worsening shortness of breath, decreased appetite, and cough. She did not have any nausea, vomiting, diarrhea, or weight loss. In the emergency room abdomen and pelvis CT was performed which had detected a mass or collection in the muscles of the lateral left abdominal wall which could be an intramuscular hematoma versus soft tissue neoplasm. She also had severe vascular disease in the abdominal aorta and pelvic branches without any aneurysm. She was admitted and also underwent abdominal ultrasound which had detected small amount of ascites, fatty infiltration of liver, prominent atherosclerosis. The patient was supposed to get biopsy of that mass on 12/11/2009. However, on 12/11/2018 in the morning time currently the patient's respiratory status had started becoming worse and she had started hyperventilating. Also she had started becoming encephalopathic, and the patient went into cardiorespiratory arrest. So cardiopulmonary resuscitation was initiated. The patient was emergently intubated and was transferred to ICU for further management. She was found to have acute kidney injury and hyperkalemia and acute hypoxic respiratory failure because of pneumonia. She was being treated with intravenous fluids and ventilator management. Echocardiogram had suggested severe pulmonary hypertension which was likely secondary to her COPD or a undiagnosed primary pulmonary hypertension. While in the ICU the patient continued to require pressor support for her septic shock likely from pneumonia. Though the blood culture did not have any growth to date, sputum was growing Enterobacter cloacae and Staphylococcus aureus. The patient has had a hard time weaning off oxygen on ventilator and she continues to require full ventilatory support. Eventually, head CT was performed to rule out any acute intracranial pathology which could be contributing to her acute encephalopathy since she was poorly responsive despite receiving minimal amount of sedation. Head CT was unremarkable. On 12/15/2018 late evening time the patient had started requiring more and more vasopressor support and her blood pressure was difficult to detect. During this hospitalization and ICU course, the patient did have difficulties getting blood pressure control. It could be likely secondary to diffuse atherosclerotic vascular disease. However, with increasing pressor requirement, a second pressor was added. On my bedside evaluation, the patient was hyperventilating and acidosis was suspected, so a stat ABG was performed which had confirmed acute metabolic acidosis. The patient was immediately started on intravenous bicarbonate drip. Initial attempts were made to obtain stat CBC and CMP to evaluate her metabolic status. However, she had difficulty in obtaining venous blood samples. The patient on phenylephrine, norepinephrine, and bicarbonate drip. Later on, unfortunately, the patient started developing bradycardia and her heart rate had started decreasing from 130s to 70s and then to 40s and eventually she lost pulse and cardiopulmonary resuscitation was initiated. Please see Code Blue Note by the night team. Eventually, the patient at approximately 2054. The patient's family was kept informed about the patient's critical condition throughout the hospital admission. They were informed about severe pulmonary hypertension, acute kidney failure, acute respiratory failure. All of their questions were answered throughout hospital course consistently. cc: Brandyn Campos MD
== END 2018-12-15 20:55 | disposition expired | DRG 870 ==
LOC: EDIPHOLD 15:40 → ED 15:40 → SUATTDRO 12-10 00:39 → SUPCPDRO 12-10 00:39 → 3N 12-10 18:27 → ICU 12-11 12:59
PROVIDERS: ATTEND Internal Medicine
CPT/HCPCS: 70450; 71010; 71045; 74000; 74018; 74019; 74020; 74177; 76700; 80048; 80053; 80069; 81001; 81025; 82150; 82570; 82805; 82948; 83605; 83690; 83735; 83880; 84132; 84156; 84300; 84484; 85025; 85379; 86850; 86900; 86901; 87040; 87070; 87077; 87088; 87186; 87205; 93005; 93010; 93306; 93970; 94002; 94003; 94640; 94761; 96374; 96375; 96376; 99285; A9270; C1725; J0171; J0330; J0696; J1265; J1630; J1644; J1885; J2020; J2060; J2270; J2370; J2405; J2543; J3370; J7030; J7050; J7070; J7120; P9047; Q9967; XXXXX